=== PATIENT | male | born 1960 | race Caucasian/White ===

== ENCOUNTER → 2016-10-31 | Outpatient (CLI) | payer OTHER ==
[~2016-10-31] VITALS: Ht 182.9 cm; Wt 81.2 kg
[~2016-10-31] MED LIST: ALLO10TA PO; ALPR1TAB3 PO; AMLO5TAB2 PO; ASPI1TAB PO; DIPH2.5T14 PO; LIDOCAINE 2% INJ 100 MG/5 ML SDV (FOR ANES.) As Ordered ONE; METO-207 PO; NS 1,000 ML IV ONE; PROPOFOL 500 MG/50 ML VIAL As Ordered ONE; SERT50TA PO
--- NOTE | 2016-10-31 09:12 | ROOR ---
Patient Name: Jorge Carmen Procedure Date: 10/31/2016 8:47 AM Date of : 1960 Age: 56 Room: [facility] Gender: Male Note Status: Finalized Procedure: Colonoscopy to Cecum Indications: Screening for colorectal malignant neoplasm Providers: Jake Garcia MD Referring MD: JOSEPHINE SIN MD Requesting Provider: Medicines: Monitored Anesthesia Care Complications: No immediate complications. Procedure: Pre-Anesthesia Assessment: - The heart rate, respiratory rate, oxygen saturations, blood pressure, adequacy of pulmonary ventilation, and response to care were monitored throughout the procedure. The Colonoscope was introduced through the anus and advanced to the cecum, identified by appendiceal orifice and ileocecal valve. The colonoscopy was performed without difficulty. The patient tolerated the procedure well. The quality of the bowel preparation was excellent. Findings: The perianal and digital rectal examinations were normal. Non-bleeding internal hemorrhoids were found during retroflexion. The hemorrhoids were small and Grade I (internal hemorrhoids that do not prolapse). No other significant abnormalities were identified in a careful examination of the remainder of the colon. The exam was otherwise without abnormality on direct and retroflexion views. Impression: - Non-bleeding internal hemorrhoids. - The examination was otherwise normal on direct and retroflexion views. - No specimens collected. - The exam was otherwise normal to the cecum. Recommendation: - Patient has a contact number available for emergencies. The signs and symptoms of potential delayed complications were discussed with the patient. Return to normal activities tomorrow. Written discharge instructions were provided to the patient. - High fiber diet. - Discharge patient to home. - Continue present medications. - Repeat colonoscopy in 10 years for screening purposes. - Return to referring physician. - The findings and recommendations were discussed with the patient's family. Jake Garcia MD Jake Garcia MD 10/31/2016 9:11:50 AM This report has been signed electronically. Number of Addenda: 0 Note Initiated On: 10/31/2016 8:47 AM Estimated Blood Loss: Estimated blood loss: none.
[2016-10-31 09:33] VITALS: BP 117/77
== END | disposition home or self-care (01) ==
LOC: M OPP 07:50
PROVIDERS: ATTEND Internal Medicine Gastroenterology
DX: Z12.11 Encounter for screening for malignant neoplasm of colon (principal); K64.0 First degree hemorrhoids; R00.8 Other abnormalities of heart beat; I10 Essential (primary) hypertension; M10.9 Gout, unspecified; R23.3 Spontaneous ecchymoses; R12 Heartburn; M19.90 Unspecified osteoarthritis, unspecified site; F32.9 Major depressive disorder, single episode, unspecified; F41.9 Anxiety disorder, unspecified; Z95.9 Presence of cardiac and vascular implant and graft, unspecified; Z79.82 Long term (current) use of aspirin; Z79.899 Other long term (current) drug therapy; Z87.891 Personal history of nicotine dependence

== ENCOUNTER → 2017-02-07 | Outpatient (CLI) | payer OTHER ==
[~2017-02-07] MED LIST changes: -LIDOCAINE 2% INJ 100 MG/5 ML SDV (FOR ANES.) As Ordered ONE; -METO-207 PO; +METO1TAB7 PO; -NS 1,000 ML IV ONE; -PROPOFOL 500 MG/50 ML VIAL As Ordered ONE
[2017-02-07 08:36] LABS: MEAN CORPUSCULAR HEMOGLOBIN 33.6 pg (27.0-33.0); MEAN CORPUSCULAR HGB CONC 33.9 g/dl (32.0-36.5); RED CELL DISTRIBUTION WIDTH 13.6 % (11.5-14.5)
[2017-02-07 09:03] LABS: ALBUMIN 3.4 GM/DL (3.2-5.2); ALBUMIN/GLOBULIN RATIO 0.85 (1.00-1.93); ALKALINE PHOSPHATASE 68 U/L (45-117); ALT/SGPT 56 U/L (12-78); ANION GAP 7 MEQ/L (8-16); AST/SGOT 34 U/L (15-37); BILIRUBIN,TOTAL 0.4 MG/DL (0.2-1.0); BLOOD UREA NITROGEN 9 MG/DL (7-18); CALCIUM LEVEL 9.3 MG/DL (8.5-10.1); CARBON DIOXIDE LEVEL 28 MEQ/L (21-32); CHLORIDE LEVEL 109 MEQ/L (98-107); CHOLESTEROL LEVEL 228 MG/DL (<200); CREATININE FOR GFR 0.73 MG/DL (0.70-1.30); GLOMERULAR FILTRATION RATE > 60.0 (>56); GLUCOSE, FASTING 111 MG/DL (70-105); POTASSIUM SERUM 4.5 MEQ/L (3.5-5.1); SODIUM LEVEL 144 MEQ/L (136-145); TOTAL PROTEIN 7.4 GM/DL (6.4-8.2); TRIGLYCERIDES LEVEL 102 MG/DL (<150)
== END ==
LOC: M LAB 07:47
PROVIDERS: ATTEND Family Medicine
DX: I10 Essential (primary) hypertension (principal); R53.83 Other fatigue

== ENCOUNTER → 2018-07-21 | Outpatient (REF) | payer OTHER ==
[~2018-07-21] MED LIST changes: -AMLO5TAB2 PO; +AMLO5TAB6 PO
== END ==
LOC: M LAB REF 12:23
PROVIDERS: ATTEND Physician Assistant
DX: A09 Infectious gastroenteritis and colitis, unspecified (principal)

== ENCOUNTER → 2018-07-21 | Outpatient (CLI) | payer OTHER ==
--- NOTE | 2018-07-21 10:39 | REP ---
KUB, ONE VIEW: HISTORY: Infectious gastroenteritis. A small amount of air is present in the intestine. There are no air fluid levels or dilated loops of intestine. There is no pneumoperitoneum. The patient is status post stenting of an abdominal aortic aneurysm. The stent extends into the common iliac arteries. IMPRESSION: Nonspecific bowel gas pattern. Electronically Signed by Dayo Alfonso MD 07/21/2018 10:48 A
[2018-07-21 12:39] LABS: BASO # 0.1 10^3/uL (0.0-0.2); BASO % 0.8 % (0.0-1.0); EOS # 0.3 10^3/uL (0.0-0.50); EOS % 2.2 % (0.0-3.0); HEMATOCRIT 53.4 % (42.0-52.0); HEMOGLOBIN 18.1 g/dl (13.5-17.5); LYMPH # 3.2 10^3/uL (1.5-4.5); LYMPH % 24.8 % (24.0-44.0); MEAN CORPUSCULAR HEMOGLOBIN 31.9 pg (27.0-33.0); MEAN CORPUSCULAR HGB CONC 33.9 g/dl (32.0-36.5); MEAN CORPUSCULAR VOLUME 94.2 fl (80.0-96.0); MONO # 1.8 10^3/uL (0.0-0.8); MONO % 13.8 % (0.0-5.0); NEUTROPHILS # 7.5 10^3/uL (1.8-7.7); NEUTROPHILS % 57.7 % (36.0-66.0); PLATELET COUNT, AUTOMATED 201 10^3/uL (150-450); RED BLOOD COUNT 5.67 10^6/uL (4.30-6.10)
[2018-07-21 13:13] LABS: ALBUMIN 3.4 GM/DL (3.2-5.2); ALT/SGPT 29 U/L (12-78); AMYLASE 54 U/L (25-115); BILIRUBIN,TOTAL 0.7 MG/DL (0.2-1.0); BLOOD UREA NITROGEN 20 MG/DL (7-18); CALCIUM LEVEL 9.8 MG/DL (8.5-10.1); CARBON DIOXIDE LEVEL 25 MEQ/L (21-32); CHLORIDE LEVEL 99 MEQ/L (98-107); CREATININE FOR GFR 1.28 MG/DL (0.70-1.30); FREE T4 0.93 NG/DL (0.76-1.46); GLOMERULAR FILTRATION RATE > 60.0 (>56); GLUCOSE, FASTING 94 MG/DL (70-100); LIPASE 126 U/L (73-393); POTASSIUM SERUM 3.9 MEQ/L (3.5-5.1); SODIUM LEVEL 137 MEQ/L (136-145)
== END ==
LOC: M WUC 09:05
PROVIDERS: ATTEND Physician Assistant
DX: A09 Infectious gastroenteritis and colitis, unspecified (principal)

== ENCOUNTER 2018-10-07 10:48 | Emergency (ER) | payer OTHER, BC ==
[~2018-10-07] VITALS: Ht 182.9 cm; Wt 85.6 kg
[~2018-10-07 10:48] MED LIST changes: -ASPI1TAB PO; +ASPI81TA26 PO; +SERT-141 PO; -SERT50TA PO
[2018-10-07] MEDS ORDERED: NORCO, ANEXSIA 5/325MG TABLET (HYDROcodone/ACETAMINOPHEN) PO ONE (13:45)
[2018-10-07] MEDS ORDERED: NAPR-837 PO (14:24)
[2018-10-07] MEDS ORDERED: ADACEL/BOOSTRIX VACCINE (DIPHTH/PERTUSS/ACELL/TETANUS)0.5ML SYR (90715) IM ONE (14:30)
[2018-10-07 14:33] VITALS: BP 141/72
--- NOTE | 2018-10-07 14:36 | REP ---
CT STUDY LUMBAR SPINE WITHOUT CONTRAST: HISTORY: Trauma. Midline pain and swelling. TECHNIQUE: Helical scanning is acquired. Coronal and sagittal multiplanar re-formation images are generated and reviewed as well. CT FINDINGS: Lumbar vertebral body heights are preserved. Alignment is normal. There is straightening of the normal lumbar lordosis. There is degenerative disc disease in the lower lumbar spine most pronounced at L5-S1 and L4-5 but discogenic spurring is also seen with reactive marrow sclerosis at the L2-3 and L3-4. There is no evidence of fracture or collapse. Pedicles and posterior elements are intact. No evidence of spondylolysis or spondylolisthesis. There is osteoarthritic facet hypertrophy bilaterally at the L5-S1 and L4-5, and to slight extended L3-4. Vascular calcification is noted. Normal caliber aorta. IMPRESSION: Degenerative spondylosis changes. No traumatic abnormality noted. Electronically Signed by Gustavo Yepez MD 10/07/2018 08:32 P
== END 2018-10-07 14:40 | disposition home or self-care (01) ==
LOC: M ED 10:48
DX: S30.0XXA Contusion of lower back and pelvis, initial encounter (principal); S50.312A Abrasion of left elbow, initial encounter; Y04.8XXA Assault by other bodily force, initial encounter; Y92.89 Other specified places as the place of occurrence of the external cause; Y93.9 Activity, unspecified; Y99.0 Civilian activity done for income or pay; M47.816 Spondylosis without myelopathy or radiculopathy, lumbar region; M47.817 Spondylosis without myelopathy or radiculopathy, lumbosacral region; Z87.891 Personal history of nicotine dependence; I10 Essential (primary) hypertension; F41.9 Anxiety disorder, unspecified; F32.9 Major depressive disorder, single episode, unspecified; Z79.82 Long term (current) use of aspirin; Z79.899 Other long term (current) drug therapy

== ENCOUNTER → 2019-02-16 | Outpatient (CLI) | payer OTHER ==
[~2019-02-16] MED LIST changes: +NAPR-837 PO
--- NOTE | 2019-02-16 12:31 | REP ---
Left shoulder three views: There is mild acromioclavicular osteoarthritis. The acromioclavicular joint is unremarkable. Mineralization is normal. There are no calcifications. There is no fracture or dislocation. Impression: Mild acromioclavicular osteoarthritis. Otherwise, negative left shoulder. Electronically Signed by Lenny Weber MD 02/16/2019 12:23 P
== END ==
LOC: M SMT 11:46
PROVIDERS: ATTEND Physician Assistant
DX: M19.012 Primary osteoarthritis, left shoulder (principal)

== ENCOUNTER 2019-04-28 21:11 | Inpatient (IN) | payer BC, OTHER ==
[~2019-04-28] VITALS: Ht 182.9 cm; Wt 80.2 kg
[2019-04-28] MEDS: MORPHINE 2 MG/ML 1ML VIAL (J2270) IV PRN ×2 (21:43→22:02)
[2019-04-28] MEDS ORDERED: HEPARIN DRIP 25,000 UNITS in IV 1 EA IV SCH (21:43)
[2019-04-28] MEDS ORDERED: HEPARIN SOD (PORCINE) 5000 UNITS/ML VIAL IV ONE (21:45)
[2019-04-28 21:48] LABS: HEMATOCRIT 44.6 % (42.0-52.0); HEMOGLOBIN 15.6 g/dl (13.5-17.5); MEAN CORPUSCULAR HEMOGLOBIN 32.2 pg (27.0-33.0); PLATELET COUNT, AUTOMATED 160 10^3/uL (150-450); RED BLOOD COUNT 4.85 10^6/uL (4.30-6.10); WHITE BLOOD COUNT 10.1 10^3/uL (4.0-10.0)
[2019-04-28 21:59] LABS: INR 1.13; PARTIAL THROMBOPLASTIN TIME 27.6 SECONDS (25.0-38.4); PROTHROMBIN TIME 14.2 SECONDS (11.8-14.0)
[2019-04-28 22:12] LABS: BLOOD UREA NITROGEN 9 MG/DL (7-18); C REACTIVE PROTEIN QUANTITATIV 0.58 MG/DL (0.00-0.30); CALCIUM LEVEL 8.7 MG/DL (8.8-10.2); CARBON DIOXIDE LEVEL 18 MEQ/L (21-32); CHLORIDE LEVEL 100 MEQ/L (98-107); CREATININE FOR GFR 1.02 MG/DL (0.70-1.30); GLOMERULAR FILTRATION RATE > 60.0 (>49); GLUCOSE, FASTING 130 MG/DL (70-100); POTASSIUM SERUM 3.5 MEQ/L (3.5-5.1); SODIUM LEVEL 134 MEQ/L (136-145)
[2019-04-28] MEDS: HYDROMORPHONE HCL 0.5 MG/ 0.5 ML SYRINGE (J1170 PER 1) IV PRN ×2 (22:25→23:55)
[2019-04-28] MEDS ORDERED: ONDANSETRON 4MG/2ML VIAL (J2405) As Ordered ONE (23:16)
[2019-04-28] MEDS ORDERED: ZYLO300T6 PO (23:22)
[2019-04-28] MEDS ORDERED: TOPR50TA PO (23:22)
[2019-04-28] MEDS ORDERED: ONDANSETRON 4MG/2ML VIAL (J2405) IV ONE (23:30)
--- NOTE | 2019-04-28 23:54 | CR.PDOC ---
General Date of Consultation: Apr 28, 2019 Consultation REASON FOR CONSULTATION/CHIEF COMPLAINT: Cold left foot HISTORY OF PRESENT ILLNESS: Mr Carmen is a very pleasant 58yo gentleman with h/o left fempop bypass in [place] in 2014 (last seen 08/2018 by his surgeon and surveillance imaging was good per the ), and now presents with a 6 hour history of ischemia LLE after kneeling on his roof this afternoon while fixing shingles. He noticed his leg was numb, cold and painful. It did not improve, and we see him now in the ED for urgent options for revascularization. He has dopplerable flow in the bypass, and the popliteal artery, but no PT/DP flow noted on doppler LLE. His foot is cold, pale, and he has limited ability to move his foot and toes. We are now at >6 hours ischemic time. He needs revascularization urgently, and we will proceed to the OR when room is available callie. His , the patient and I discussed the risks, benefits and alternatives to arteriogram and thrombolysis, possible angioplasty if needed for catheter p lacement, of his LLE bypass if thrombosis is present and his distal tibial outflow LLE. We discussed that he will go to the ICU postop, and need a repeat arteriogram and possible intervention 12-24 hours after. They are agreeable to this plan. Informed consent obtained. Patient denies falls, head injuries, MVC, trauma, or surgeries in the last 3 months. He denies h/o CVA, intracranial aneurysms, nose bleeds, bleeding gums, hematemesis, hemoptysis, hematuria, hematochezia, BRBPR, or any other recent bleeding episodes. Will proceed to OR for TPA thrombolysis for limb salvage LLE. ALLERGIES: Please see below. HOME MEDICATIONS: Please see below. PAST MEDICAL HISTORY: 1. PVD. 2. HTN 3. Paroxysmal afib 4. Gout 5. Anxiety/depression PAST SURGICAL HISTORY: 1. Pyloromyotomy 2. R 4th finger plating 3. L fempop bypass with artificial conduit FAMILY HISTORY: Father: Heart disease- of [place] at 49yo Mother: Heart disease and cancer SOCIAL HISTORY: , quit smoking 2014, 6 beers/day, denies illicit drug use REVIEW OF SYSTEMS: CONSTITUTIONAL: Denies f/c HEENT: Denies vision changes, dysphagia, hearing loss CARDIOVASCULAR: Denies CP, +palpitations RESPIRATORY: Denies cough SOB GENITOURINARY: Denies dysuria MUSCULOSKELETAL: +Ischemia LLE GASTROINTESTINAL: +nausea,vomiting SKIN: Denies rashes NEUROLOGICAL: Denies SOLIMAN or sz PSYCHIATRIC: +anxiety/depression ENDOCRINE: Denies DM HEMATOLOGIC/LYMPHATIC: Denies anemia ALLERGIC/IMMUNOLOGIC: Denies PHYSICAL EXAMINATION: VITAL SIGNS: Please see below. GENERAL APPEARANCE: Diaphoretic, mild distress HEENT: NC, TMI, vision grossly intact RESPIRATORY: CTA CARDIOVASCULAR: IRR ABDOMEN: Soft NT EXTREMITIES: RLE warm well perfused with biphasic distal signal, LLE foot pale and cold, no DP/PT signals, +signal bypass NEUROLOGICAL: A&Ox3, diminished motor and sensory L foot PSYCHIATRIC: pleasant and cooperative LABORATORY DATA: Please see below. ASSESSMENT/PLAN: Very pleasant 58yo gentleman with acute ischemia LLE, now >6 hours ischemic time and limb is threatened. 1. Urgent OR for TPA thrombolysis LLE. 2. ICU postop and plan for repeat arteriogram after 12-24 hours depending on how he does with thrombolysis. 3. Continue heparin gtt for now. We appreciate the opportunity to participate in the care of this patient. Vital Signs/I&O Vital Signs Date Time Temp Pulse Resp B/P (MAP) Pulse Ox O2 Delivery O2 Flow Rate FiO2 04/28/19 22:25 18 98 04/28/19 21:17 04/28/19 21:11 98.4 87 Laboratory Data Labs 24H Laboratory Tests 2 04/28/19 21:40: Nucleated Red Blood Cells % (auto) 0.0, Prothrombin Time 14.2H, Prothromb Time International Ratio 1.13, Activated Partial Thromboplast Time 27.6, Anion Gap 16 , Glomerular Filtration Rate > 60.0, Lactic Acid Level 4.9*H, Calcium Level 8.7L, C-Reactive Protein, Quantitative 0.58H CBC/BMP Laboratory Tests 04/28/19 21:40 Allergies Coded Allergies: No Known Allergies (Unverified , 10/23/16) Home Medications Scheduled Allopurinol (Zyloprim) 300 Mg Tablet, 300 MG PO DAILY, (Reported) Alprazolam (Alprazolam) 1 Mg Tab, 1 MG PO DAILY, (Reported) Amlodipine Besylate (Amlodipine Besylate) 5 Mg Tab, 5 MG PO DAILY, (Reported) Aspirin (Aspirin EC) 81 Mg Tab, 81 MG PO DAILY, #30 (Reported) Metoprolol Succinate (Toprol Xl) 50 Mg Tab.er.24h, 50 MG PO DAILY, (Reported) Naproxen (Naprosyn) 500 Mg Tablet, 500 MG PO BID, #30 take with food Sertraline Hcl (Sertraline HCl) 50 Mg Tab, 50 MG PO DAILY, (Reported) MARIANNE THORNE MD Apr 28, 2019 23:01
[2019-04-29] VITALS (41 sets, daily range): BP systolic 111–172; BP diastolic 60–93; O2SAT 92
[2019-04-29] MEDS ORDERED: ceFAZolin SOD 2 GM in IV 1 EA IV ONE ×2
[2019-04-29] MEDS ORDERED: ALTEPLASE RECOMBINANT IV ONE ×2
[2019-04-29] MEDS ORDERED: BUPIVACAINE/EPIN 0.5% 30 ML VIAL As Ordered ONE (00:17)
[2019-04-29] MEDS ORDERED: BUPIVACAINE HCL 0.5% 30 ML VIAL As Ordered ONE (00:17)
[2019-04-29] MEDS ORDERED: LIDOCAINE 1% SDV INJ 30 ML VIAL As Ordered ONE (00:20)
[2019-04-29] MEDS ORDERED: HEPARIN SOD (PORCINE) 5000 UNITS/ML VIAL As Ordered ONE ×2 (00:23→02:00)
[2019-04-29] MEDS ORDERED: ALTEPLASE RECOMBINANT 25 MG in NS 225 ML IV SCH (00:45)
[2019-04-29] MEDS ORDERED: fentaNYL 100 MCG/2 ML INJECTION (J3010) As Ordered ONE ×3 (00:48→16:35)
[2019-04-29] MEDS ORDERED: dexameTHASONE 4 MG/ML 1ML VIAL (J1100) As Ordered ONE (00:48)
[2019-04-29] MEDS ORDERED: LIDOCAINE 2% INJ 100 MG/5 ML SDV (FOR ANES.) As Ordered ONE (00:48)
[2019-04-29] MEDS ORDERED: MIDAZOLAM INJ 2 MG/2 ML VIAL (J2250) As Ordered ONE ×2 (00:48→16:35)
[2019-04-29] MEDS ORDERED: PROPOFOL 200 MG/20 ML VIAL As Ordered ONE ×3 (00:48→01:50)
[2019-04-29] MEDS ORDERED: ONDANSETRON 4MG/2ML VIAL (J2405) As Ordered ONE (00:48)
[2019-04-29] MEDS ORDERED: ceFAZolin 1GM INJ (J0690 PER 500MG) As Ordered ONE (01:04)
[2019-04-29] MEDS ORDERED: PERCOCET 5MG/325MG TAB PO PRN (02:45)
[2019-04-29] MEDS ORDERED: ONDANSETRON 4MG/2ML VIAL (J2405) IV PRN (02:45)
[2019-04-29] MEDS ORDERED: LR 1,000 ML IV SCH (02:45)
[2019-04-29] MEDS: fentaNYL 100 MCG/2 ML INJECTION (J3010) IV PRN ×4 (03:03→03:32)
[2019-04-29] MEDS: HYDROMORPHONE HCL 0.5 MG/ 0.5 ML SYRINGE (J1170 PER 1) IV PRN ×5 (03:41→18:37)
[2019-04-29] MEDS ORDERED: HYDROMORPHONE HCL 0.5 MG/ 0.5 ML SYRINGE (J1170 PER 1) As Ordered ONE (03:41)
--- NOTE | 2019-04-29 03:58 | ROOPDOC ---
[facility] Report Of Operation Report of Operation DATE OF PROCEDURE: 04/29/19 PREPROCEDURE DIAGNOSES: Acute ischemia LLE POSTPROCEDURE DIAGNOSES: Same PROCEDURE: 1. US guided access R COAL WASHER TENDER 2. Arteriogram LLE with selection of the left common femoral and popliteal arteries 3. Placement of 50cm infusion length TPA thrombolysis catheter from origin of b ypass to popliteal artery SURGEON: Valeria Kasper MD ANESTHESIA: MAC and local INDICATION FOR PROCEDURE: 58yo gentleman with acute ischemia left leg. He has a synthetic bypass left femoral popliteal artery done in [place], and was kneeling to lay julia yesterday, then kneeling and squatting to fix a roof today, and when he got down from the roof, his leg was numb and cold. It did not improve, and eventually he sought help at the ED. Unfortunately by the time I saw the patient he had >6hours ischemia time, but he could move his toes so I am hopeful the foot is viable. Risks, benefits and alternatives to a TPA thrombolysis procedure was discussed at length with the patient and his , and they are agreeable to proceed. They understand he is high risk for limb loss due to the extent and duration of ischemic time. Informed consent obtained. REPORT OF OPERATION: The patient was brought to the OR in stable but critical condition. Monitored anesthesia care and antibiotics were administered without complication. His bilateral groins were prepped and draped in sterile fashion. A time out was performed. Local anesthesia was administered to the right groin and we accessed the right common femoral artery under US guidance. This was a very challenging access due to heavy calcified plaque that was near occlusive in the common femoral artery. Eventually we were successful in accessing and passing a wire through the plaque. A micro sheath was placed and a glidewire was advance through the access to the aorta under fluoroscopic guidance. An omni flush catheter was advance over the wire and used to go up and over the bifurcation to the left common femoral vessel. Arteriogram revealed patent profunda but no flow in the bypass and the origin was not visualized well. I attempted to access the bypass repeatedly, and then eventually I used US to identify the origin of the bypass and guide my wire and catheter into the bypass. I exchanged the glide wire for a stiff amplatz wire, advanced it distally to the popliteal artery through the bypass, and then advanced the infusion catheter over the wire. An arteriogram through the infusion catheter revealed fresh thrombus in the tibial vessels to the foot. 6 mg of TPA was used to flush through the catheter, and then a drip of TPA at 1mg an hour was begun for infusion. We then switched the heparin drip to the sheath at 500 units per hour. We then secured the sheath and infusion catheter with an ioban. The patient was taken to PACU in stable condition. DRAINS: none SPECIMENS: none ESTIMATED BLOOD LOSS: Approximately 5 mL. COMPLICATIONS: none PLAN: Will return for repeat arteriogram after 12-24 hours depending on improvement in perfusion. Bedrest until TPA catheter is removed. Continue [place] while TPA infusing. Clear liquid diet. Analgesia and anxiolytics prn. VALERIA KASPER MD Apr 29, 2019 03:58
[2019-04-29] MEDS ORDERED: PERCOCET 5MG/325MG TAB As Ordered ONE (04:06)
[2019-04-29] MEDS ORDERED: HEPARIN DRIP 25,000 UNITS in IV 1 EA IV SCH ×2 (04:13→19:00)
[2019-04-29] MEDS ORDERED: diazePAM 5 MG TAB PO SCH (06:00)
[2019-04-29] MEDS: ONDANSETRON 4MG/2ML VIAL (J2405) IV SCH ×3 (06:32→19:08)
[2019-04-29 06:36] LABS: PARTIAL THROMBOPLASTIN TIME 45.3 SECONDS (25.0-38.4)
[2019-04-29] MEDS: PERCOCET 5MG/325MG TAB PO PRN (07:34)
--- NOTE | 2019-04-29 08:12 | HPE ---
DATE OF ADMISSION: 04/29/2019 PRIMARY CARE PROVIDER: USRENDRA Serrano CHIEF COMPLAINT: Left foot numbness. HISTORY OF PRESENT ILLNESS: This is a 58-year-old male with a past medical history significant for over 50 pack year history of smoking, left Achilles tendon wound, peripheral artery disease with left femoral popliteal artery bypass in 2014, last seen by his surgeon August 2018, bilateral femoral artery stenting in 2010, who presented to the emergency room with acute onset of left painful, pale foot after working on his roof fixing shingles and noted this around 5:00 p.m. today. The patient has noted numbness, then pain, then difficulty with ambulation prompting him to come to the emergency room. 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 He was evaluated by vascular surgery in the emergency room who felt that the patient had critical limb ischemia, which was acute onset in the left foot and brought him emergently to the operating room for thrombolysis with TPA. The patient denies any history of gastrointestinal bleed in the past, intracranial hemorrhage, hematological bleeding tendencies. The hospitalist was asked to admit for an acute ischemic left foot for medical management of other chronic illnesses. He underwent TPA thrombolysis, currently on IV heparin drip for the next 24 hours, monitoring for improvement or worsening clinical status. The patient and patient's have been informed by vascular surgery, Dr. Kasper, that should the patient not have any improvement with thrombolysis that his left foot may not be salvageable. The patient is able to ambulate but with some difficulty due to 10 out of 10 pain. Catheter is noted postoperatively in right groin, minimal blood loss in the operating room. Remains afebrile with preoperative antibiotics. He is requiring IV Dilaudid for breakthrough pain due to severe 10 out of 10 pain and has been placed on Valium 5 mg every 6 hours due to history of daily alcohol abuse, as well as for pain control. PAST MEDICAL HISTORY: 1. Peripheral arterial disease status post fem-pop and bilateral artery stenting in 2010. 2. Anxiety. 3. Depression. 4. Paroxysmal atrial fibrillation. 5. Hypertension. 6. Gout. ALLERGIES: No known drug allergies. PAST SURGICAL HISTORY: 1. Right hand right ring finger fracture in 1989 with right fourth finger plating. 2. Left fem-pop bypass with artifical conduit. 3. Pyloromyotomy. 4. Elbow surgery. 5. Right leg fracture. HOME MEDICATIONS: - allopurinol 300 mg daily - alprazolam 1 mg daily - Norvasc 5 mg daily - metoprolol XL 50 mg daily - sertraline 50 mg daily FAMILY HISTORY: Mother with coronary artery disease, cancer, unknown type. One brother and two sisters. A son and daughter are all healthy. Father with coronary artery disease, myocardial infarction at age 49. SOCIAL HISTORY: Previously smoked a pack a day since he was young, quit 10 years ago. Lives at home with his . Owns a mobile home. High school education. 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 Denies recreational drug use. Drinks six beers daily. 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 REVIEW OF SYSTEMS: Denies weight changes, fevers, chills, changes in appetite. Denies diplopia, blurred vision, tinnitus, vertigo, hearing loss. Denies shortness of breath, chest pain, pressure, tightness, lightheadedness, or dizziness. Denies cough, shortness of breath. No prior history of chronic obstructive pulmonary disease (COPD) or asthma. Quit smoking more than 10 years ago, previously smoked a pack a day. Denies dysuria, urgency, frequency, fevers, chills, or flank pain. Denies abdominal pain. Complains of nausea without vomiting. No fever or chills. No constipation or diarrhea. History of anxiety and depression. Denies bright red blood per rectum, melena, black tarry stools, hematemesis. Denies CVA, headache, seizures. Complains of left foot numbness, cold, difficulty ambulating due to severe pain, history of peripheral arterial disease with fem-pop bypass, bilateral femoral artery stenting. All other systems are otherwise negative. PHYSICAL EXAMINATION: VITAL SIGNS: Temperature 97, pulse 75, respiratory rate 14, blood pressure 160/75, 98% on 2 liters nasal cannula. GENERAL: The patient is awake, alert, oriented to person, place and time. Able to speak in full sentences. Face is symmetric. Anicteric. No jaundice. No jugular venous distention (JVD). No thyromegaly. No use of respiratory accessory muscles. LUNGS: Clear to auscultation. No wheezing, rales or rhonchi. HEART: S1, S2. Sinus rhythm. ABDOMEN: Soft, nontender, nondistended. Positive bowel sounds. No rebound or guarding. No hepatosplenomegaly. No abdominal bruits noted. EXTREMITIES: Left foot is cool, pale, purplish in color, cold to touch, nonpalpable dorsalis pedis and posterior tibialis, popliteal pulses positive with Doppler. Right anterior thigh has an arterial sheath. Right foot is pink in color and warm to touch. No peripheral edema. LABORATORY DATA: White count 10, hemoglobin 15, hematocrit 44, platelet count 160. Sodium 134, potassium 3.5, chloride 100, bicarbonate 18, BUN 9, creatinine 1.0, glucose of 130, lactic acid of 4.9, calcium 8.7, C-reactive protein 0.58. ASSESSMENT AND PLAN: This is a 58-year-old male with a history of peripheral arterial disease, status post bilateral femoral stenting with left fem-pop bypass and with artificial conduit in 2014, who presents with acute ischemic left lower extremity, brought to the operating room for TPA thrombolysis. The patient is admitted as an inpatient for two midnights for the following issues: 1. Acute ischemic left lower extremity, status post TPA thrombolysis, currently on intravenous heparin, managed by vascular surgeon Dr. Kasper. Activity is bed rest with left lower extremity elevation. He is currently on Percocet, IV Dilaudid for pain control. Defer to Dr. Kasper for further management. 2. Hypertension. Resumed on home dose of metoprolol and Norvasc. 3. Gout. On allopurinol. 4. Anxiety and depression. On home dose of sertraline and Xanax. 5. Alcohol abuse with six beers daily. Currently on Valium 5 mg every 6 hours. 6. Diet is no added salt. CODE STATUS: FULL CODE. MTDD
[2019-04-29] MEDS: METOPROLOL SUCC (TopROL XL) 50MG **XL** TAB PO SCH (08:27)
[2019-04-29] MEDS: amLODIPine 5 MG TAB PO SCH (08:27)
[2019-04-29] MEDS: ceFAZolin SOD 1 GM in D5W MINI-BAG PLUS 50 ML IV SCH ×2 (08:27→18:36)
[2019-04-29] MEDS: SERTRALINE HCL 50 MG TAB PO SCH (08:27)
[2019-04-29] MEDS: ALLOPURINOL 300 MG TAB PO SCH (08:27)
[2019-04-29] MEDS ORDERED: ALPRAZolam 0.5 MG TAB PO SCH (09:00)
[2019-04-29 12:03] LABS: HEMATOCRIT 45.1 % (42.0-52.0)
[2019-04-29 12:16] LABS: FIBRINOGEN 122 MG/DL (221-452)
[2019-04-29] MEDS ORDERED: LORazepam 2 MG TAB PO PRN (12:30)
[2019-04-29 12:46] LABS: PARTIAL THROMBOPLASTIN TIME > 240.0 SECONDS (25.0-38.4)
--- NOTE | 2019-04-29 12:47 | IPNPDOC ---
Text Note Date of Service The patient was seen on 04/29/19. NOTE Interim events and Subjective: -Was visiting with family this morning and reporting that his pain is much better than when he presented -His feet feel cold, is asking for socks -Was placed on benzoQ6 for history of high alcohol use and continued on home daily xanax -Was urgently seen by vascular yesterday and had TPA thrombolysis of LLE -Unfortunately DP pulses have not been dopplerable on both LE per overnight nursing and on vascular exam this morning Objective: -VITAL SIGNS: Please see below. GENERAL APPEARANCE: Comfortable, pleasant, NAD HEENT: NCAT, vision grossly intact, MMM RESPIRATORY: CTAB CARDIOVASCULAR: Irregular rhythm, no murmurs ABDOMEN: Normoactive, soft, non tender EXTREMITIES: feet pale and cold, no DP palpable pulses bilaterally NEUROLOGICAL: A&Ox3, diminished motor and sensory L foot but reporting that it has improved from the prior exam at presentation PSYCHIATRIC: pleasant and cooperative, AOx3 LABORATORY DATA: Please see below. Assessment: 58-year-old male with a history of peripheral arterial disease, status post bilateral femoral stenting with left fem-pop bypass and with artificial conduit in 2014, who presented with acute ischemic left lower extremity s/p TPA thrombolysis with ongoing pain management and pending arteriogram this afternoon. 1. Acute ischemic left lower extremity, status post TPA thrombolysis, currently on intravenous heparin, managed by vascular surgeon Dr. Kasper. -Activity is bed rest with left lower extremity elevation. -Continue Percocet, IV Dilaudid for pain control and deferring to vascular team for management -Pending arteriogram this afternoon 2. Hypertension. -Resumed on home dose of metoprolol and Norvasc. 3. Gout. -On allopurinol. 4. Anxiety and depression. -On home dose of sertraline and Xanax. 5. Alcohol abuse with six beers daily. -Switched from standing valium to CIWA protocol 6. Diet: Clear liquid diet per vascular team VS,Fishbone, I+O VS, Fishbone, I+O Laboratory Tests 04/28/19 21:40 04/29/19 11:45 Vital Signs Date Time Temp Pulse Resp B/P (MAP) Pulse Ox O2 Delivery O2 Flow Rate FiO2 04/29/19 12:01 97.0 70 20 117/77 (90) 90 Room Air 04/29/19 09:31 1.0 I&O- Last 24 Hours up to 6 AM 04/29/19 06:00 Intake Total 890 ml Output Total 230 ml Balance 660 ml ANDRES PEÑA MD Apr 29, 2019 12:46
[2019-04-29 13:14] LABS: HEMATOCRIT 43.4 % (42.0-52.0); HEMOGLOBIN 14.7 g/dl (13.5-17.5)
[2019-04-29 13:21] LABS: PARTIAL THROMBOPLASTIN TIME 34.1 SECONDS (25.0-38.4)
[2019-04-29] MEDS ORDERED: LIDOCAINE 1% MDV 20ML VIAL As Ordered ONE (16:14)
[2019-04-29] MEDS ORDERED: ISOVUE-300 61% 50ML VIAL (Q9967) As Ordered ONE ×2 (16:14→17:45)
[2019-04-29] MEDS: THIAMINE 100 MG TAB PO SCH ×2 (18:35→18:49)
[2019-04-29] MEDS: FOLIC ACID 1 MG TAB PO SCH (18:36)
[2019-04-29] MEDS: MULTIVITAMINS/MINERALS THERAP 1 TAB PO SCH (18:36)
--- NOTE | 2019-04-29 18:40 | ROOPDOC ---
[facility] Report Of Operation Report of Operation DATE OF PROCEDURE: 04/29/19 PREPROCEDURE DIAGNOSES: 1. Acute ischemia left lower extremity status post thrombolysis catheter placement across left femoral-popliteal bypass and popliteal artery. 2. Acute on chronic ischemic changes right lower extremity with right common femoral artery access site for thrombolysis catheter left lower extremity. POSTPROCEDURE DIAGNOSES: Same PROCEDURE: 1. Left lower extremity arteriogram through thrombolysis catheter and removal TPA thrombolysis catheter 2. Right lower extremity arteriogram through existing common femoral artery sheath 3. Mynx closure right common femoral artery 4. Ultrasound-guided access left common femoral artery 5. Angioplasty right common femoral and profunda with 6 x 100 [place] balloon 6. Administration 8 mg TPA to right common femoral artery through sheath 7. Completion arteriograms with runoff to the right foot 8. Mynx closure left common femoral artery SURGEON: Marianne Kasper MD ANESTHESIA: Local anesthesia 10 mL lidocaine. Monitored intravenous conscious sedation with supervised by Dr. Kasper. The patient was independently monitored by registered nurse assigned as Department of radiology using automated blood pressure, EKG, and pulse oximetry. The detailed sedation record is permanently stored in the hospital information system. The following is the brief sedation record: Start time 16:38, stop time 17:56, Versed 1 mg IV, fentanyl 25 g IV, TPA 8 mg IV. CONTRAST: 99 mL Isovue INDICATION FOR PROCEDURE: Mr. Carmen is a 4-year-old gentleman who underwent a left femoral to below-knee popliteal bypass and [place] many years ago and yesterday had an acute thrombosis of his bypass graft while repairing his roof. He unfortunately had extended ischemic time, and by the time I saw him in the ER, we were in a fairly urgent situation to revascularize. We took the patient to the OR for placement of a thrombolysis catheter left lower extremity, which was extremely challenging due to near occlusive calcification in the right common femoral artery at our access site, history of iliac stents, ability to find the origin of the femoropopliteal bypass, etc. eventually, we were successful in placing a thrombolysis catheter from the origin of the bypass through the distal anastomosis at the popliteal artery. TPA thrombolysis was performed overnight and throughout the day today. When I saw the patient this afternoon his recent fibrinogen was less than 150 and we stop the tPA. We inc reased the heparin drip to 1200 units an hour through the sheath at that point. His left lower extremity was warm and well-perfused, but his right foot looked mottled and cold. The patient said it did not feel any different than normal, but I did notice a difference from when I first saw him in the ER. My fear was that the sheath was occluding most of the flow through the very stenotic common femoral artery. We had planned to bring the patient back for a completion arteriogram after thrombolysis, but we will also perform a right lower extremity arteriogram and see if we can improve flow to the right lower extremity as well. Risks benefits and alternatives were explained to the patient he is agreeable to proceed. Informed consent was obtained. INTERPRETATION: 1. The left lower extremity bypass graft, popliteal artery, and tibial outflow are all widely patent. No significant residual thrombus is noted. 2. Right lower extremity arteriogram through the existing right common femoral artery 7 Cymro sheath reveals the sheath is nearly occlusive within the heavily stenotic common femoral artery, but there is runoff through a widely patent profunda and a complete occlusion of the superficial femoral artery. There is some filling defect in the distal common femoral artery that was concerning for possibly thrombus or may be chronic plaque. 3. After removal of the right femoral sheath and placement of a 6 Cymro sheath up and over the bifurcation from the left common femoral artery, we attempted aspiration at the distal common femoral artery and no thrombus was retrieved. Angioplasty with a 6 x 100 [place] balloon did not improve flow. Because of this I was concerned that this was in fact thrombus, likely from the previous sheath nearly occluding the right common femoral vessel. We did have some TPA from our TPA drip and 8 mg total in 80 mL was administered through the sheath to the area of concern for thrombus. After this, the common femoral artery was widely patent with no residual thrombus noted. There was good flow into the profunda which supplies the reconstituted below-knee popliteal artery and tibials through collateral circulation. REPORT OF OPERATION: Patient was brought to the angiographic suite in stable condition and placed supine on the fluoroscopic table. His right groin, sheath, and TPA lysis catheter were prepped and draped in a sterile fashion. A timeout was performed. Sedation was administered without complication. Arteriograms through the existing TPA thrombolysis catheter revealed widely patent flow th roughout the left lower extremity with no significant residual thrombus. Arteriogram through the right femoral sheath revealed chronic disease with some possible acute thrombus in the distal common femoral artery as well. Please see interpretation above. End Mincks closure device was deployed at the sheath in the right common femoral artery with good hemostasis. We then used ultrasound guidance to gain access on the left common femoral artery, past wire through this access, and then placed a micro-sheath using a Seldinger technique. A Glidewire was advanced through the iliac system and the aorta under fluoroscopic guidance and a 6 Cymro sheath was placed and flushed with saline. We went up and over the bifurcation with an Omni flushed catheter and a Glidewire and then a 45 cm destination sheath was placed over the bifurcation with the tip at the right common femoral artery. The sheath was flushed with saline. Arteriograms with runoff were performed. There was clearly chronic disease in the right lower extremity, with a chronic occlusion of the SFA and distal reconstitution of the popliteal through collaterals from the profunda. Would have to foot is minimal since it is all from collaterals from the profunda, but it is intact. However, I suspect the flow is somewhat diminished by what appears to be thrombus versus occlusive plaque in the distal common femoral artery at the origin of the profunda. We navigated the Glidewire through this area into the profunda and angioplasty with a 6 x 100 [place] balloon with no significant improvement in flow. We then administered 8 mg of TPA in 80 mL left over from our TPA drip through the sheath to this area. After that, arteriogram showed a much improved flow into the profunda and clearance of what I suspect was thrombus at the distal common femoral artery. Next a we performed a runoff to the foot and saw that flow was thready but intact. Mynx closure device was deployed in the left common femoral artery with good hemostasis. Pressure was held at both groins for 10 minutes and the patient was taken to recovery in stable condition. His right foot appeared somewhat better perfused but it was still difficult to Doppler signals at the DP and PT. The patient said this is not unusual for him. The left foot is easy to Doppler and is very warm postprocedure. We're hopeful the right foot will continue to improve now that the sheath is out and now that there is no residual thrombus in the common femoral artery obstructing outflow to the profunda. He will return to the ICU. ESTIMATED BLOOD LOSS: Approximately 5 mL. COMPLICATIONS: None. PLAN: The patient will return to the ICU and will be on 4 hours of bedrest postprocedure. Following that, he can slowly resume normal activity as tolerated, initially with assist until stable and safe without assist. Okay for regular diet. If patient is doing well tomorrow he may be able to go home tomorrow, and he will resume his Plavix. MARIANNE KASPER MD Apr 29, 2019 18:40
[2019-04-29] MEDS ORDERED: HEPARIN SOD (PORCINE) 5000 UNITS/ML VIAL IV PRN (18:45)
[2019-04-29] MEDS ORDERED: IPRATROPIUM 0.5MG/ALBUTEROL 2.5MG INH SOL UD 3ML (DUONEB)(J7620) NEB PRN (21:15)
[2019-04-29] MEDS ORDERED: methylPREDNISolone INJ 125 MG/2 ML VIAL (J2930) IV ONE (21:15)
[2019-04-30] VITALS (13 sets, daily range): BP systolic 100–144; BP diastolic 55–84
[2019-04-30] MEDS: ceFAZolin SOD 1 GM in D5W MINI-BAG PLUS 50 ML IV SCH ×2 (01:07→09:00)
[2019-04-30 03:18] LABS: HEMATOCRIT 40.8 % (42.0-52.0); HEMOGLOBIN 13.5 g/dl (13.5-17.5); MEAN CORPUSCULAR HEMOGLOBIN 32.1 pg (27.0-33.0); MEAN CORPUSCULAR HGB CONC 33.1 g/dl (32.0-36.5); MEAN CORPUSCULAR VOLUME 96.9 fl (80.0-96.0); PLATELET COUNT, AUTOMATED 121 10^3/uL (150-450); RED BLOOD COUNT 4.21 10^6/uL (4.30-6.10); WHITE BLOOD COUNT 12.7 10^3/uL (4.0-10.0)
[2019-04-30 04:21] LABS: BLOOD UREA NITROGEN 18 MG/DL (7-18); CALCIUM LEVEL 8.1 MG/DL (8.8-10.2); CARBON DIOXIDE LEVEL 32 MEQ/L (21-32); CHLORIDE LEVEL 100 MEQ/L (98-107); CREATININE FOR GFR 0.94 MG/DL (0.70-1.30); GLOMERULAR FILTRATION RATE > 60.0 (>49); GLUCOSE, FASTING 160 MG/DL (70-100); POTASSIUM SERUM 4.8 MEQ/L (3.5-5.1); SODIUM LEVEL 135 MEQ/L (136-145)
[2019-04-30] MEDS: HYDROMORPHONE HCL 0.5 MG/ 0.5 ML SYRINGE (J1170 PER 1) IV PRN (05:58)
--- NOTE | 2019-04-30 06:55 | ECGEPIP ---
[facility] - ED Test Date: 2019-04-28 Pat Name: LISA JARRETT Department: Room: [place] [address] Gender: Male Legal Director: HERNANDO : 1960 Requested By: KAVITA Mclean Order Number: [id number] Reading MD: Magdalena Kang Measurements Intervals [place] Rate: 63 P: 45 PA: 162 QRS: 46 QRSD: 137 T: 21 QT: 478 QTc: 490 Interpretive Statements SINUS RHYTHM LEFT ATRIAL ENLARGEMENT INTRAVENTRICULAR CONDUCTION DELAY INFERIOR MYOCARDIAL INFARCTION, PROBABLY OLD NO PRIOR Electronically Signed on 04-30-2019 6:54:48 EDT by Magdalena Kang
[2019-04-30] MEDS: SERTRALINE HCL 50 MG TAB PO SCH (09:46)
[2019-04-30] MEDS: METOPROLOL SUCC (TopROL XL) 50MG **XL** TAB PO SCH (09:46)
[2019-04-30] MEDS: THIAMINE 100 MG TAB PO SCH ×2 (09:46→21:05)
[2019-04-30] MEDS: ALLOPURINOL 300 MG TAB PO SCH (09:46)
[2019-04-30] MEDS: MULTIVITAMINS/MINERALS THERAP 1 TAB PO SCH (09:46)
[2019-04-30] MEDS: FOLIC ACID 1 MG TAB PO SCH (09:47)
[2019-04-30] MEDS: ALPRAZolam 0.5 MG TAB PO SCH (09:47)
[2019-04-30] MEDS: amLODIPine 5 MG TAB PO SCH (09:47)
[2019-04-30] MEDS: ASPIRIN 81 MG ENTERIC TAB PO SCH (12:57)
--- NOTE | 2019-04-30 13:07 | IPNPDOC ---
Text Note Date of Service The patient was seen on 04/30/19. NOTE Interim events and Subjective: -Much improved pain, has walked around the room -LLE feels much better now is not cold anymore -Had arteriogram that showed improvement in LLE flow but significant RLE proximal disease and so was continued on heparin gtt. -No ativan necessary per low CIWAs -Per vascular this morning, good left DP pulses with poor right. Objective: VITAL SIGNS: Please see below. GENERAL APPEARANCE: Comfortable, pleasant, NAD HEENT: NCAT, vision grossly intact, MMM RESPIRATORY: CTAB CARDIOVASCULAR: Irregular rhythm, no murmurs ABDOMEN: Normoactive, soft, non tender EXTREMITIES:warm and well perfused left lower extremity while right lower extremity is cool this morning NEUROLOGICAL: A&Ox3, full range of motion in both feet PSYCHIATRIC: pleasant and cooperative, AOx3 LABORATORY DATA: Please see below. Assessment: 58-year-old male with a history of peripheral arterial disease, status post bilateral femoral stenting with left fem-pop bypass and with artificial conduit in 2014, who presented with acute ischemic left lower extremity s/p TPA thrombolysis with ongoing pain management and improvement in LLE examination with spiritism of blood flow, however with course c/b RLE ischemia with high disease burden per vascular surgery and therefore continuing anticoagulation and will switch plavix to ASA for discharge on ASA/eliquis with plan for eventual RLE bypass surgery in ~30days. Doing well, will transfer to floor with plan for discharge home tomorrow. 1. Acute ischemic left lower extremity, status post TPA thrombolysis, currently on intravenous heparin, managed by vascular surgeon Dr. Kasper, with spiritism of flow and improvement of LLE exam. -Activity as tolerated -Continue Percocet -Discontinue IV Dilaudid 2. Acute ischemic right lower extremity with coolness on exam -High disease burden per vascular -Plan on full anticoagulation + ASA and discontinuing plavix -Continuing heparin gtt for now with plan for dc at 2100h tonight with start of first dose of eliquis 5mg BID -Per vascular surgery, plan will be for eliquis/ASA at discharge home tomorrow and will plan for RLE bypass surgery in ~30days 2. Hypertension. -Resumed on home dose of metoprolol and Norvasc. 3. Gout. -On allopurinol. 4. Anxiety and depression. -On home dose of sertraline and Xanax. 5. Alcohol abuse with six beers daily. -Will DC CIWA protocol at this time, with no ativan doses given on his baseline daily 1mg Xanax Diet: Regular DVT prophylaxis: on full dose anticoagulation Dispo: PT eval and treat, with plan for home tomorrow VS,Fishbone, I+O VS, Fishbone, I+O Laboratory Tests 04/29/19 12:50 04/30/19 03:08 Vital Signs Date Time Temp Pulse Resp B/P (MAP) Pulse Ox O2 Delivery O2 Flow Rate FiO2 04/30/19 12:04 98.0 65 18 130/71 (90) 94 Room Air 04/30/19 03:00 1.0 I&O- Last 24 Hours up to 6 AM 04/30/19 06:00 Intake Total 1069 ml Output Total 1600 ml Balance -531 ml ANDRES PEÑA MD Apr 30, 2019 13:07
--- NOTE | 2019-04-30 15:04 | IPNPDOC ---
Text Note Date of Service The patient was seen on 04/30/19. NOTE Vascular surgery. Dr. Kasper The patient is status post TPA thrombolysis left lower extremity, angioplasty right common femoral and profunda as per Dr. Kasper 04/29/19. Perfusion to the left lower extremity has been improved. The left foot is warm to touch with good signals with Doppler. The left foot appears well perfused. The patient reports no pain/discomfort in the left lower extremity. The patient was noted to have coolness in the right lower extremity yesterday with angioplasty of the right common femoral and profunda completed 04/29/19. The patient is noted to have disease of the right lower extremity. This morning the right foot from the distal pretibial/ankle area downward is cool to touch. Diminished capillary refill. Unable to Doppler DP/PT pulses. The patient however states he is not having pain or discomfort in the right foot. He had some d iscomfort in the right thigh area with ambulation in the room this morning with the RN. The patient's current status is reviewed with Dr. Kasper. Dr. Kasper at the bedside this a.m. and also examined the patient and discussed further with the patient. Plan to continue to observe for now. Will plan to add aspirin 81 mg daily, begin this morning. Begin Eliquis 5 mg by mouth twice a day this evening. Once he begins Eliquis will plan to discontinue heparin drip. Continue to closely monitor and advance activity as tolerated. Possibly consider discharge 05/01/19. VS,Fishbone, I+O VS, Fishbone, I+O Laboratory Tests 04/30/19 03:08 Vital Signs Date Time Temp Pulse Resp B/P (MAP) Pulse Ox O2 Delivery O2 Flow Rate FiO2 04/30/19 13:55 98.0 75 18 144/84 (104) 93 Room Air 04/30/19 03:00 1.0 I&O- Last 24 Hours up to 6 AM 04/30/19 06:00 Intake Total 1069 ml Output Total 1600 ml Balance -531 ml Cara Smith Apr 30, 2019 15:04
[2019-04-30] MEDS ORDERED: traZODone 25MG PER 1/2 TABLET PO ONE (17:00)
[2019-04-30] MEDS: PERCOCET 5MG/325MG TAB PO PRN (18:22)
[2019-04-30] MEDS ORDERED: APIXABAN 5 MG TAB (ELIQUIS) PO SCH (21:00)
[2019-05-01] VITALS (9 sets, daily range): BP systolic 106–145; BP diastolic 61–71
[2019-05-01 06:36] LABS: HEMATOCRIT 36.8 % (42.0-52.0); HEMOGLOBIN 12.3 g/dl (13.5-17.5); MEAN CORPUSCULAR HEMOGLOBIN 32.1 pg (27.0-33.0); MEAN CORPUSCULAR HGB CONC 33.4 g/dl (32.0-36.5); MEAN CORPUSCULAR VOLUME 96.1 fl (80.0-96.0); PLATELET COUNT, AUTOMATED 116 10^3/uL (150-450); RED BLOOD COUNT 3.83 10^6/uL (4.30-6.10)
[2019-05-01 07:08] LABS: BLOOD UREA NITROGEN 14 MG/DL (7-18); CALCIUM LEVEL 7.9 MG/DL (8.8-10.2); CARBON DIOXIDE LEVEL 30 MEQ/L (21-32); CHLORIDE LEVEL 102 MEQ/L (98-107); CREATININE FOR GFR 0.91 MG/DL (0.70-1.30); GLOMERULAR FILTRATION RATE > 60.0 (>49); GLUCOSE, FASTING 109 MG/DL (70-100); POTASSIUM SERUM 3.6 MEQ/L (3.5-5.1); SODIUM LEVEL 137 MEQ/L (136-145)
[2019-05-01] MEDS: ASPIRIN 81 MG ENTERIC TAB PO SCH (09:00)
[2019-05-01] MEDS ORDERED: HEPARIN SOD (PORCINE) 5000 UNITS/ML VIAL IV ONE (09:15)
[2019-05-01] MEDS ORDERED: oxyCODONE 5MG TAB PO PRN (09:15)
[2019-05-01] MEDS ORDERED: HEPARIN 25,000 UNITS/250 ML D5W BAG (100 UNITS/ML) As Ordered ONE (09:35)
[2019-05-01] MEDS: PERCOCET 5MG/325MG TAB PO PRN (09:53)
[2019-05-01] MEDS: amLODIPine 5 MG TAB PO SCH (09:54)
[2019-05-01] MEDS: ALPRAZolam 0.5 MG TAB PO SCH (09:54)
[2019-05-01] MEDS: METOPROLOL SUCC (TopROL XL) 50MG **XL** TAB PO SCH (09:55)
[2019-05-01] MEDS: HEPARIN DRIP 25,000 UNITS in IV 1 EA IV SCH (09:59)
[2019-05-01] MEDS ORDERED: ISOVUE-300 61% 50ML VIAL (Q9967) As Ordered ONE (10:26)
[2019-05-01] MEDS ORDERED: LIDOCAINE 1% MDV 20ML VIAL As Ordered ONE (10:26)
[2019-05-01] MEDS ORDERED: fentaNYL 100 MCG/2 ML INJECTION (J3010) As Ordered ONE (10:27)
[2019-05-01] MEDS ORDERED: HEPARIN 1,000 UNITS/ML 10ML VIAL (FOR RADIOLOGY& DIALYSIS ONLY) As Ordered ONE (10:27)
[2019-05-01] MEDS ORDERED: MIDAZOLAM INJ 2 MG/2 ML VIAL (J2250) As Ordered ONE (10:27)
--- NOTE | 2019-05-01 10:49 | IPNPDOC ---
Text Note Date of Service The patient was seen on 05/01/19. NOTE Vascular surgery. Dr. Kasper The patient is status post TPA thrombolysis left lower extremity, angioplasty right common femoral and profunda as per Dr. Kasper 04/29/19. Perfusion to the left lower extremity has been improved. The left foot is warm to touch with good signals with Doppler. The left foot appears well perfused. The patient reports no pain/discomfort in the left lower extremity. The patient is S/P angioplasty of the right common femoral and profunda completed 04/29/19. Arteriogram indicated chronic disease in the right lower extremity, with a chronic occlusion of the SFA and distal reconstitution of the popliteal through collaterals from the profunda. This morning the patient has complained of right lower extremity pain. He reports pain in the foot and the thigh area. Some discomfort he reports a shooting pain, and he is known to have chronic low back pain. The patient has diminished capillary refill in the right foot. We are still unable to Doppler DP/PT pulses in the right foot, unable to Doppler popliteal. Doppler signal is noted at the right femoral. Dr. Kasper is at the patient's bedside this morning. She has reviewed and examined the patient. With the patient's description, it is difficult to determine if this is more vascular or neurogenic. Plan is to proceed with arteriogram of the right lower extremity this a.m. with further revascularization if amenable. Attempt to avoid open procedure if possible. The procedure, risks, and benefits are reviewed with the patient. The patient wishes to proceed. Consent is obtained and placed on the chart. Have reinitiated heparin drip. Discontinue Eliquis. Nothing by mouth. Continue with pain control. Continue to closely monitor. VS,Fishbone, I+O VS, Fishbone, I+O Laboratory Tests 05/01/19 06:12 Vital Signs Date Time Temp Pulse Resp B/P (MAP) Pulse Ox O2 Delivery O2 Flow Rate FiO2 05/01/19 10:15 99.9 92 16 96 Room Air 05/01/19 09:54 154/77 04/30/19 03:00 1.0 I&O- Last 24 Hours up to 6 AM 05/01/19 06:00 Intake Total 1233 ml Output Total 1000 ml Balance 233 ml Cara Smith May 01, 2019 10:49
[2019-05-01] MEDS ORDERED: ALTEPLASE 2 MG/2 ML VIAL (J2997 PER 1MG) As Ordered ONE ×2 (10:58→11:39)
--- NOTE | 2019-05-01 12:30 | IPNPDOC ---
Text Note Date of Service The patient was seen on 05/01/19. NOTE Subjective: -Reports worsening pain in the right foot that sometimes travel all the way to the thighs. Reports that he had severe pain that he could not even get off the toilet when he walked to the bathroom. -Vascular remains unable to doppler DP/PT and popliteal pulses in the right foot, with positive doppler at the right femoral. Objective: VITAL SIGNS: Please see below. GENERAL APPEARANCE: Comfortable, pleasant, NAD HEENT: NCAT, vision grossly intact, MMM RESPIRATORY: CTAB CARDIOVASCULAR: Irregular rhythm, no murmurs ABDOMEN: Normoactive, soft, non tender EXTREMITIES:left lower extremity WWP, right lower extremity remains cool and pale this morning. NEUROLOGICAL: A&Ox3, full range of motion in both feet but significant pain just push to step in the right foot PSYCHIATRIC: pleasant and cooperative, AOx3 LABORATORY DATA: Please see below. Assessment: 58-year-old male with a history of peripheral arterial disease, status post bilateral femoral stenting with left fem-pop bypass and with artificial conduit in 2014, who presented with acute ischemic left lower extremity s/p TPA thrombolysis and improvement in LLE examination with scientologist of blood flow, however with course c/b RLE ischemia with high disease burden per vascular surgery s/p angioplasty and yesterday had planned on anticoagulation with eliquis and ASA with plan for eventual RLE bypass surgery in ~30days, however given worsening RLE pain, vascular decided to proceed with a RLE arteriogram this a.m. with further revascularization if amenable. Plan: 1. Acute ischemic left lower extremity, status post TPA thrombolysis, currently on intravenous heparin, managed by vascular surgeon Dr. Kasper, with scientologist of flow and improvement of LLE exam. -Activity as tolerated -Continue Percocet 2. Acute ischemic right lower extremity with coolness on exam and worsening pain. -High disease burdenr -proceed with arteriogram of the right lower extremity this a.m. with further revascularization if amenable -Restart heparin gtt and hold eliquis 5mg BID 2. Hypertension. -Resumed on home dose of metoprolol and Norvasc. 3. Gout. -On allopurinol. 4. Anxiety and depression. -On home dose of sertraline and Xanax. 5. Alcohol abuse with six beers daily. -DC CIWA protocol at this time, with no ativan doses given on his baseline daily 1mg Xanax Diet: Regular DVT prophylaxis: on full dose anticoagulation Dispo: PT eval and treat, with plan for home tomorrow VS,[place], I+O VS, Jusbone, I+O Laboratory Tests 05/01/19 06:12 Vital Signs Date Time Temp Pulse Resp B/P (MAP) Pulse Ox O2 Delivery O2 Flow Rate FiO2 05/01/19 12:07 65 16 99 Nasal Cannula 2 05/01/19 10:15 99.9 05/01/19 09:54 154/77 I&O- Last 24 Hours up to 6 AM 05/01/19 06:00 Intake Total 1233 ml Output Total 1000 ml Balance 233 ml ANDRES PEÑA MD May 01, 2019 12:30
--- NOTE | 2019-05-01 12:42 | ROOPDOC ---
[facility] Report Of Operation Report of Operation DATE OF PROCEDURE: 05/01/19 PREPROCEDURE DIAGNOSES: Atherosclerosis of the [place] vessels the right lower extremity with acute on chronic ischemia POSTPROCEDURE DIAGNOSES: Same PROCEDURE: 1. Ultrasound-guided access left common femoral artery 2. Right lower extremity arteriogram 3. Administration TPA to right common femoral artery and profunda artery, 16 mg total 4. Angioplasty right common femoral artery and proximal profunda with 5 x 100 and 7 x 100 Loretto balloons 5. Completion arteriograms 6. Mynx closure left common femoral artery SURGEON: Marianne Kasper MD ANESTHESIA: Local anesthesia 8 mL lidocaine. Moderate intravenous conscious sedation was administered by Dr. Kasper. Patient was independently monitored by a registered nurse assigned to the Department of radiology with automated EKG, pulse oximetry, and blood pressure. The detailed sedation record is housed permanently in the hospital information system. The following is the brief sedation record: Start time 10:47, stop time 11:47, Versed 1 mg IV, fentanyl 50 g IV. INDICATION FOR PROCEDURE: Mr. Carmen is a very pleasant 58-year-old patient who came in a few days ago with acute ischemia of the left lower extremity in thrombosis of his left femoropopliteal bypass and popliteal artery and tibial outflow. He had extensive ischemic time, but we were able to reopen everything with TPA thrombolysis and he tolerated reperfusion well in the left lower extreme a bypass is salvaged. The left lower extremity is doing well. However, we accessed the right common femoral artery in order to place a TPA catheter up and over the bifurcation, and it was challenging access due to heavy calcification and near occlusion in the right common femoral artery. We eventually were able to get the sheath and, but I believe the sheath partially obstructed but little outflow he had through the common femoral artery into the right lower extremity. Before we removed the sheath from the right common femoral artery, arteriogram through the sheath confirmed that the sheath was taking up most of the patent lumen in the right common femoral artery. We also noted a chronic total occlusion of the right superficial femoral artery with extensive collaterals from the profunda filling distally into the patent below- knee popliteal artery with thready tibial runoff. We then removed the sheath in place to minx closure device. There was good hemostasis initially, but when we then accessed the left common femoral artery and went up and over the bifurcation to treat the right side near occlusion, we needed to give TPA and angioplasty the vessel. Following this, there was then bleeding from the right groin which required us to hold pressure for 15 minutes. I believe holding pressure after reopening the vessel might have closed it down somewhat again. The following day the patient seemed okay when he was on heparin drip but when we converted him to eliquis last night his legs became more ischemic. This morning, I did not feel the patient was in satisfactory condition to continue on eliquis and go home, so we restarted a heparin drip with the bolus and discussed with him the risks benefits and alternatives to another intervention to see if we could provide endovascular options for better perfusion to the right lower extremity. We still really would like to wait 6-8 weeks to do his femoral endar terectomy and femoropopliteal bypass and allow that tissue in the groin to heal, but if we are unable to open things today, our next plan will be to take him for open surgery. Risks benefits and alternatives were explained to the patient needs agreeable to proceed. Informed consent was obtained. INTERPRETATION: 1. The right common femoral artery has heavy occlusive plaque at the distal aspect just proximal to the takeoff of the profunda. There is also a little bit of thrombus in this area further restricting flow. 2. The profunda is widely patent with collaterals to the lower leg. 3. After administration of 12 mg TPA to the right common femoral artery and profunda, significant flushing with heparinized saline, angioplasty with a 5 x 107 x 100 Loretto balloon, the common femoral artery into the profunda artery was patent with brisk flow. Runoff to the foot was still sluggish below the knee and tibial outflow at the ankle was minimal. An additional 4 mg of TPA was given through the profunda and flushed through the collaterals with heparinized saline. This improved runoff all the way to the distal foot. Still this is not ideal and the patient will need a bypass. No extravasation, dissection, or embolization was noted. REPORT OF OPERATION: Mr. Carmen was brought to the angiographic suite in stable condition and placed supine on the fluoroscopic table. His bilateral groins were prepped and draped in sterile fashion. A timeout was performed. Sedation was administered without complication. Ultrasound was used to guide access to the left common femoral artery proximal to the takeoff of the femoropopliteal bypass with ultrasound. A wire was passed through this access under fluoroscopic guidance the needle was removed and a micro-sheath was placed. The sheath was flushed with saline. A Glidewire was advanced through this into the aorta under fluoroscopic guidance. Due to heavy scar tissue, we first placed an 8 Mexican dilator over the wire using a Seldinger technique and then the 6 Mexican sheath was placed and flushed with saline. We went up and over the bifurcation with a Glidewire and knobby flushed catheter and the catheter was placed into the common femoral artery on the right. We then performed an arteriogram and the findings are noted above. We then took some time to navigate the wire passed the near occlusion in the common femoral artery into the profunda using a glide cath. We then it exchanged sheath her destination 6 Mexican sheath. 12 mg of TPA was administered through the glide cath into the profunda as well as into the common femoral artery. We then flushed with heparinized saline and angioplasty of the common femoral artery into the proximal 3 cm of the profunda with a 5 x 100 Loretto balloon. There was some improvement after this but still sluggish flow especially distally. We then exchange the balloon for a 7 x 100 Loretto balloon and administered another 4 mg of TPA distally through the profunda and flushed through the collaterals with copious amounts of saline so that it might make a difference in the distal tibial system. Following the angioplasty and additional TPA, we had widely patent inflow into the profunda that was brisk. It is still not perfect and the patient still needs a right common femoral endarterectomy, but this may be enough to keep his collaterals flowing freely. He then had distal tibial runoff all the way to the foot and the foot went from white and cool to pink with 1 second capillary refill. This concluded the procedure. We exchange the sheath over the wire for short 6 Mexican sheath in a minx closure device was deployed under fluoroscopic guidance with good hemostasis. Pressure was held for 15 minutes and the patient was then taken to recovery in stable condition. He was then later transferred to his room for additional bed rest postprocedure. ESTIMATED BLOOD LOSS: Approximately 5 mL. COMPLICATIONS: None. PLAN: 4 hours of bedrest with left leg straight after procedure. Okay to resume diet. Our plan is to maintain the patient on a heparin drip for the next 24-48 hours. We will then try again to convert him to [facility] for possible discharge to home with a plan to bring him back in 4-6 weeks for a right lower extremity femoral endarterectomy and femoropopliteal bypass after his bruising in his right groin has healed. If he develops ischemic changes again on the [facility], we will be forced to proceed with bypass on this admission, which is suboptimal due to the tenuous tissue right groin. We will see how he does over the next few days and make a decision in further recommendations to follow as appropriate. For now, continue heparin drip with standard protocol. Hieu has been DC'd. Analgesia and anxiolytics when necessary. Normal saline IV fluid hydration due to 3 procedures with IV contrast in the last week. MARIANNE KASPER MD May 01, 2019 12:42
[2019-05-01] MEDS: SERTRALINE HCL 50 MG TAB PO SCH (14:15)
[2019-05-01] MEDS: ALLOPURINOL 300 MG TAB PO SCH (14:15)
[2019-05-01] MEDS: THIAMINE 100 MG TAB PO SCH ×2 (14:15→20:37)
[2019-05-01] MEDS: FOLIC ACID 1 MG TAB PO SCH (14:15)
[2019-05-01] MEDS: MULTIVITAMINS/MINERALS THERAP 1 TAB PO SCH (14:16)
--- NOTE | 2019-05-01 16:54 | IPNPDOC ---
Date Seen The patient was seen on 05/01/19. Progress Note Pt seen and examined s/p RLE revasc today. It is a bit better, but still not optimal. The foot is pink and warmer, and the pt says it feels much better. 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 We will see how he does. Continue heparin gtt for at least 24-48 hours and if ok, we will try a conversion to eliquis again Saturday or Saturday. Will follow exam closely. Valium prn at night for insomnia, muscle spasms, nerve pain. Analgesia increased and available prn. Encourage oral diet and protein intake to help with healing. Pt agreeable to plan. VS, I&O, 24H, Fishbone Vital Signs/I&O Vital Signs Date Time Temp Pulse Resp B/P (MAP) Pulse Ox O2 Delivery O2 Flow Rate FiO2 05/01/19 15:00 99.4 77 20 106/61 (76) 93 Room Air 05/01/19 12:07 2 I&O- Last 24 Hours up to 6 AM 05/01/19 06:00 Intake Total 1233 ml Output Total 1000 ml Balance 233 ml Laboratory Data 24H LABS Laboratory Tests 2 05/01/19 06:12: Nucleated Red Blood Cells % (auto) 0.0, Activated Partial Thromboplast Time 28.6, Anion Gap 5L, Glomerular Filtration Rate > 60.0, Calcium Level 7.9L 05/01/19 16:00: Activated Partial Thromboplast Time 53.5H CBC/BMP Laboratory Tests 05/01/19 06:12 MARIANNE THORNE MD May 01, 2019 16:54
[2019-05-01] MEDS: HEPARIN SOD (PORCINE) 5000 UNITS/ML VIAL IV PRN (17:53)
[2019-05-01] MEDS: ONDANSETRON 4MG/2ML VIAL (J2405) IV SCH (18:23)
[2019-05-01] MEDS: diazePAM 10 MG TAB PO PRN (18:23)
[2019-05-01] MEDS ORDERED: ACETAMINOPHEN TAB 650MG DOSE (2X325MG) PO PRN (18:30)
[2019-05-01] MEDS ORDERED: cefTRIAXone SOD 2 GM VIAL (J0696) IM SCH (20:00)
--- NOTE | 2019-05-01 20:08 | IPNPDOC ---
Text Note Date of Service The patient was seen on 05/01/19. NOTE Was called about patient bleeding from his angio site on his left groin area. I advised nurses to hold pressure over bleeding site and await for my arrival. On on arrival, nursing staff alerted me that they had also called Dr. Kasper and she had advise them to hold pressure for 20 minutes, recheck for bleeding. And if patient is still bleeding, hold pressure again for another 20 minutes. And if patient continues to bleed, she should be notified via a phone call. I advised staff to follow orders as per Dr. King. I will check series H and H and have placed an or for a 10 pound sand bag for additional homeostasis. VITAL SIGNS: Please see below. GENERAL APPEARANCE: Comfortable, no distress, SKIN: non pale appearing CARDIOVASCULAR: Irregular rhythm, no murmurs EXTREMITIES:left lower extremity cool, pulses intact, cap refill 4-5 secs NEUROLOGICAL: A&Ox3, VS,Fishbone, I+O VS, Fishbone, I+O Laboratory Tests 05/01/19 06:12 Vital Signs Date Time Temp Pulse Resp B/P (MAP) Pulse Ox O2 Delivery O2 Flow Rate FiO2 05/01/19 19:35 100.6 05/01/19 18:00 80 18 123/63 (83) 94 Room Air 05/01/19 12:07 2 I&O- Last 24 Hours up to 6 AM 05/01/19 06:00 Intake Total 1233 ml Output Total 1000 ml Balance 233 ml GME ATTESTATION GME ATTESTATION My faculty preceptor for this patient encounter was physically present during t he encounter and was fully available. All aspects of the patient interview, examination, medical decision making process, and medical care plan development were reviewed and approved by the faculty preceptor. The faculty preceptor is aware and concurs with the plan as stated in the body of this note and will attest to such by his/her cosignature. JACQUES YOO DO May 01, 2019 20:08 EMILY THOMPSON MD May 02, 2019 02:08
[2019-05-01 20:37] LABS: HEMATOCRIT 34.2 % (42.0-52.0); HEMOGLOBIN 11.2 g/dl (13.5-17.5)
[2019-05-01] MEDS: cefTRIAXone SOD 2 GM in D5W MINI-BAG PLUS 50 ML IV SCH (20:37)
[2019-05-02] MEDS: HEPARIN SOD (PORCINE) 5000 UNITS/ML VIAL IV PRN ×3 (00:51→14:26)
[2019-05-02 02:00] VITALS: BP 117/64
[2019-05-02 06:00] VITALS: BP 127/69
[2019-05-02 07:00] LABS: HEMATOCRIT 34.5 % (42.0-52.0); HEMOGLOBIN 11.4 g/dl (13.5-17.5); MEAN CORPUSCULAR HEMOGLOBIN 32.4 pg (27.0-33.0); PLATELET COUNT, AUTOMATED 118 10^3/uL (150-450); RED BLOOD COUNT 3.52 10^6/uL (4.30-6.10)
[2019-05-02 07:24] LABS: BLOOD UREA NITROGEN 11 MG/DL (7-18); CALCIUM LEVEL 8.1 MG/DL (8.8-10.2); CARBON DIOXIDE LEVEL 28 MEQ/L (21-32); CHLORIDE LEVEL 105 MEQ/L (98-107); CREATININE FOR GFR 0.77 MG/DL (0.70-1.30); GLOMERULAR FILTRATION RATE > 60.0 (>49); GLUCOSE, FASTING 113 MG/DL (70-100); POTASSIUM SERUM 3.8 MEQ/L (3.5-5.1); SODIUM LEVEL 138 MEQ/L (136-145)
[2019-05-02] MEDS: HEPARIN DRIP 25,000 UNITS in IV 1 EA IV SCH (07:59)
[2019-05-02] MEDS: ASPIRIN 81 MG ENTERIC TAB PO SCH (09:16)
[2019-05-02] MEDS: ALPRAZolam 0.5 MG TAB PO SCH (09:17)
[2019-05-02] MEDS: FOLIC ACID 1 MG TAB PO SCH (09:17)
[2019-05-02] MEDS: MULTIVITAMINS/MINERALS THERAP 1 TAB PO SCH (09:17)
[2019-05-02] MEDS: ALLOPURINOL 300 MG TAB PO SCH (09:17)
[2019-05-02] MEDS: SERTRALINE HCL 50 MG TAB PO SCH (09:17)
[2019-05-02] MEDS: amLODIPine 5 MG TAB PO SCH (09:19)
[2019-05-02] MEDS: METOPROLOL SUCC (TopROL XL) 50MG **XL** TAB PO SCH (09:19)
--- NOTE | 2019-05-02 09:48 | IPNPDOC ---
Date Seen The patient was seen on 05/02/19. Progress Note Patient seen and examined. Last night, he had some postprocedure oozing from his left common femoral access site. The nurses controlled this with pressure for 20 minutes, and a sandbag was placed. We prefer not to have a sandbag on this groin since the patient has a tenuous bypass status post revascularization on this admission. I discussed this with the nurses and they understand. No unfortunate sequela occurred from the sandbag, so we are still in good shape with the left lower extremity. This morning, the patient had a little bleeding again, which had stopped by the time I arrived due to pressure from the morning nurse. The patient needed a bolus for his heparin drip, which we cannot stop due to tenuous vascular status of his right lower extremity as well, thus while the bolus was b eing given and for 30 minutes after, I held gentle pressure over the common femoral artery. No additional bleeding was noted during that time. The postprocedure dressings were removed and new dry dressings were reapplied. The patient tolerated this well. His left lower extremity has strong biphasic signals over the PT and DP, but is still difficult to auscultate signals on the right lower extremity. He desperately needs a bypass revascularization of this lower extremity, but it is much better than it was preprocedure yesterday after opening up better flow from the common femoral into the profunda, which provides collateral circulation to the below-knee tibials. The foot is warm and pink toda y. The patient has no pain in the leg and says it feels at its baseline. We will continue the heparin drip at least 24 hours longer, and unfortunately he has a risk for issues of rebleeding from the left common femoral access site due to full anticoagulation, thus I will keep him on bed rest for the next 24 hours. If his leg is well-perfused tomorrow afternoon, and he has no new bleeding issues from the left groin, we will try to switch him to eliquis again in preparation for discharge. Eventually, the patient will need a right femoral endarterectomy and femoropopliteal bypass, but we would like his right groin bruising to heal prior to proceeding with surgery, and ideally this would be 4-6 weeks. He understands that it may be more urgent to proceed before that time, we will have to accept the increased risks of fragile tissue with increased risk of poor wound healing. We will see how he does. For today, he should remain on bedrest with limited activity in the bed. He should use his incentive spirometer. Analgesia and anxiolytics when necessary. We appreciate the hospitalist chari griffith with this patient. VS, I&O, 24H, Fishbone Vital Signs/I&O Vital Signs Date Time Temp Pulse Resp B/P (MAP) Pulse Ox O2 Delivery O2 Flow Rate FiO2 05/02/19 09:19 87 140/72 05/02/19 06:00 98.9 19 93 Room Air 05/01/19 12:07 2 I&O- Last 24 Hours up to 6 AM 05/02/19 06:00 Intake Total 756 ml Output Total 850 ml Balance -94 ml Laboratory Data 24H LABS Laboratory Tests 2 05/01/19 16:00: Activated Partial Thromboplast Time 53.5H 05/01/19 21:31: Methicillin-Resist S.aureus DNA PCR NOT DETECTED 05/02/19 00:03: Activated Partial Thromboplast Time 56.1H 05/02/19 06:46: Activated Partial Thromboplast Time 62.9H, Nucleated Red Blood Cells % (auto) 0.0, Anion Gap 5L, Glomerular Filtration Rate > 60.0, Calcium Level 8.1L CBC/BMP Laboratory Tests 05/01/19 20:24 05/02/19 06:46 Microbiology Microbiology 05/01/19 Blood Culture, Received Pending MARIANNE THORNE MD May 02, 2019 09:48
[2019-05-02 10:00] VITALS: BP 131/73
[2019-05-02 14:00] VITALS: BP 113/62
--- NOTE | 2019-05-02 16:36 | IPNPDOC ---
Text Note Date of Service The patient was seen on 05/02/19. NOTE Interim events: -Was restarted on heparin gtt and taken back to the OR for cool RLE with worsening pain now s/p RLE revasc with some improvement noted on vascular's post OR exam without +dopplerable pulse -Overnight had bleeding at L groin cath site that was managed with hemostasis -Had a fever yesterday evening to 102.4, had blood cultures drawn and started on empiric ceftriaxone and afebrile overnight with no new complaints -Pain regimen escalated from PRN percocet to PRN percocet and oxycodone, with good effect Subjective: -Reports that his RLE pain has improved -Otherwise feels well, denied dysuria, diaphoresis, chills, shortness of breath, chest pain, palpitations. -12 point ROS is otherwise at this time positive for RLE pain and negative for all the other elements Objective: VITAL SIGNS: Please see below. GENERAL APPEARANCE: Comfortable, pleasant, NAD HEENT: NCAT, vision grossly intact, MMM RESPIRATORY: CTAB CARDIOVASCULAR: Irregular rhythm, no murmurs ABDOMEN: Normoactive, soft, non tender EXTREMITIES:left lower extremity WWP, right lower extremity warmer this morning. NEUROLOGICAL: A&Ox3, full range of motion in both feet PSYCHIATRIC: pleasant and cooperative, AOx3 LABORATORY DATA: Please see below. Assessment: 58-year-old male with a history of peripheral arterial disease, status post bilateral femoral stenting with left fem-pop bypass and with artificial conduit in 2014, who presented with acute ischemic left lower extremity s/p TPA thrombolysis and improvement in LLE examination with lutheran of blood flow, however with course c/b RLE ischemia with high disease burden per vascular surgery s/p angioplasty and yesterday had planned on anticoagulation with eliquis and ASA with plan for eventual RLE bypass surgery in ~30days, however given worsening RLE pain, vascular decided to proceed with a repeat RLE arteriogram yesterday and performed revascularization with plan for by bypass after groin heels. Plan: 1. Acute ischemic left lower extremity, status post TPA thrombolysis on the day of admission, currently on intravenous heparin, managed by vascular surgeon Dr. Kasper, with lutheran of flow and improvement of LLE exam. -Activity as tolerated -Continue Percocet, oxycodone 2. Acute ischemic right lower extremity with coolness on exam and worsening pain. 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 Catheter sites bleeding L groin bleeding: resolved after hemostasis, dressing this morning was c/d/i R groin hematoma: monitor for now and monitor H/H Pending FOBT to investigate other bleeding 4. Hypertension. -Continue home dose of metoprolol and Norvasc. 5. Gout. -On allopurinol. 6. Anxiety and depression. -On home dose of sertraline and Xanax. 7. Alcohol abuse with six beers daily. -s/p CIWA, stable 8. Insomnia -Was started on PRN QHS valium by vascular on 05/01 Diet: Regular DVT prophylaxis: on full dose anticoagulation with heparin gtt VS,Fishbone, I+O VS, Fishbone, I+O Laboratory Tests 05/01/19 20:24 05/02/19 06:46 Vital Signs Date Time Temp Pulse Resp B/P (MAP) Pulse Ox O2 Delivery O2 Flow Rate FiO2 05/02/19 06:00 98.9 75 19 127/69 (88) 93 Room Air 05/01/19 12:07 2 I&O- Last 24 Hours up to 6 AM 05/02/19 06:00 Intake Total 756 ml Output Total 850 ml Balance -94 ml ANDRES PEÑA MD May 02, 2019 08:25
[2019-05-02] MEDS: diazePAM 10 MG TAB PO PRN (19:17)
[2019-05-02] MEDS: cefTRIAXone SOD 2 GM in D5W MINI-BAG PLUS 50 ML IV SCH (19:38)
[2019-05-02] MEDS ORDERED: cefTRIAXone SOD 2 GM VIAL (J0696) IV SCH (20:00)
[2019-05-02] MEDS: PERCOCET 5MG/325MG TAB PO PRN (21:04)
[2019-05-02 22:00] VITALS: BP 132/76
[2019-05-03] MEDS: HEPARIN DRIP 25,000 UNITS in IV 1 EA IV SCH (01:27)
[2019-05-03 06:00] VITALS: BP 131/65
[2019-05-03 07:21] LABS: HEMATOCRIT 34.1 % (42.0-52.0); HEMOGLOBIN 11.3 g/dl (13.5-17.5); MEAN CORPUSCULAR HEMOGLOBIN 31.7 pg (27.0-33.0); MEAN CORPUSCULAR HGB CONC 33.1 g/dl (32.0-36.5); MEAN CORPUSCULAR VOLUME 95.8 fl (80.0-96.0); PLATELET COUNT, AUTOMATED 147 10^3/uL (150-450); RED BLOOD COUNT 3.56 10^6/uL (4.30-6.10); WHITE BLOOD COUNT 8.2 10^3/uL (4.0-10.0)
[2019-05-03 07:41] LABS: BLOOD UREA NITROGEN 11 MG/DL (7-18); CALCIUM LEVEL 8.4 MG/DL (8.8-10.2); CARBON DIOXIDE LEVEL 28 MEQ/L (21-32); CHLORIDE LEVEL 105 MEQ/L (98-107); CREATININE FOR GFR 0.79 MG/DL (0.70-1.30); GLOMERULAR FILTRATION RATE > 60.0 (>49); GLUCOSE, FASTING 113 MG/DL (70-100); POTASSIUM SERUM 3.4 MEQ/L (3.5-5.1); SODIUM LEVEL 138 MEQ/L (136-145)
[2019-05-03] MEDS: ASPIRIN 81 MG ENTERIC TAB PO SCH (08:23)
[2019-05-03] MEDS: METOPROLOL SUCC (TopROL XL) 50MG **XL** TAB PO SCH (08:25)
[2019-05-03] MEDS: amLODIPine 5 MG TAB PO SCH (08:25)
[2019-05-03] MEDS: PERCOCET 5MG/325MG TAB PO PRN ×2 (08:25→19:15)
[2019-05-03] MEDS: ALPRAZolam 0.5 MG TAB PO SCH (08:25)
[2019-05-03] MEDS: SERTRALINE HCL 50 MG TAB PO SCH (08:25)
[2019-05-03] MEDS: MULTIVITAMINS/MINERALS THERAP 1 TAB PO SCH (08:25)
[2019-05-03] MEDS: ALLOPURINOL 300 MG TAB PO SCH (08:26)
[2019-05-03] MEDS: FOLIC ACID 1 MG TAB PO SCH (08:26)
[2019-05-03] MEDS ORDERED: POTASSIUM CHLORIDE 10 MEQ SR TABLET PO ONE (09:00)
[2019-05-03] MEDS ORDERED: BISACODYL 10 MG SUPP PR PRN (09:45)
[2019-05-03] MEDS ORDERED: KCL 20MEQ in NS 1000ML 1,000 ML IV SCH (09:45)
--- NOTE | 2019-05-03 09:56 | IPNPDOC ---
Date Seen The patient was seen on 05/03/19. Progress Note Pt seen and examined. Feeling better today. No new bleeding issues last 24hrs, but mild hematuria is present. Bruising over right groin/scrotum/thigh is stable- tissue is appropriately tender but soft. Femoral pulse palpable. Right DP/PT signals dopplerable today, monophasic. Foot is pink and warm with 2 sec capillary refill. This is all improved. Left groin access site with small bruising near access site, stable. Femoral pulse and DP/PT pulses palpable. Bypass signal biphasic. Foot is warm and pink with 1 second capillary refill. Looks great. Will try to convert pt again to eliquis. I think the hematuria is related to the large heparin boluses given yesterday in the morning and at noon, in addition to a high infusion rate on the drip, and multiple recent doses of TPA for revascularization. IF no gross blood in urine present, will follow for now. Will add IVF for flushing, encourage PO fluids, and add a little K+ to the fluids as he needed replacement today. To err on the side of caution, I'd still like him mostly on bedrest today. He can get OOB with assist to the BR for a BM, but otherwise stay in bed. Colace and dulcolax given for constipation. Will get him up tomorrow with nurse assist for ambulation in the halls, shower, etc if he has no bleeding or clotting issues overnight. Anticipate d/c home possibly tomorrow afternoon if he continues to improve and no new perfusion or bleeding events. VS, I&O, 24H, Jusbone Vital Signs/I&O Vital Signs Date Time Temp Pulse Resp B/P (MAP) Pulse Ox O2 Delivery O2 Flow Rate FiO2 05/03/19 08:25 20 05/03/19 08:25 73 157/90 05/03/19 06:00 98.4 95 Room Air 05/01/19 12:07 2 I&O- Last 24 Hours up to 6 AM 05/03/19 06:00 Intake Total 506 ml Output Total 0 ml Balance 506 ml Laboratory Data 24H LABS Laboratory Tests 2 05/02/19 13:45: Activated Partial Thromboplast Time 62.9H 05/02/19 20:19: Activated Partial Thromboplast Time 89.1H 05/03/19 01:15: Activated Partial Thromboplast Time 79.2H 05/03/19 07:06: Activated Partial Thromboplast Time 82.3H, Nucleated Red Blood Cells % (auto) 0.0, Anion Gap 5L, Glomerular Filtration Rate > 60.0, Calcium Level 8.4L CBC/BMP Laboratory Tests 05/03/19 07:06 Microbiology Microbiology 05/01/19 Blood Culture - Preliminary, Resulted No growth after 24 hours . All specim... MARIANNE THORNE MD May 03, 2019 09:56
[2019-05-03] MEDS: APIXABAN 5 MG TAB (ELIQUIS) PO SCH ×2 (10:14→19:52)
[2019-05-03] MEDS: DOCUSATE SODIUM 100 MG CAP PO SCH ×2 (10:14→19:52)
[2019-05-03 14:00] VITALS: BP 107/60
--- NOTE | 2019-05-03 17:46 | IPNPDOC ---
Text Note Date of Service The patient was seen on 05/03/19. NOTE Interim events: -Heparin gtt stopped, Eliquis started this AM -Negative BCx thus far, so stopped ceftriaxone -RLE DP pulse was dopplerable this morning per nursing, pain much improved Subjective: -Otherwise feels well, denied dysuria, diaphoresis, chills, shortness of breath, chest pain, palpitations. -12 point ROS is otherwise at this time positive for LE pain that is much improved Objective: VITAL SIGNS: Please see below. GENERAL APPEARANCE: Comfortable, pleasant, NAD HEENT: NCAT, vision grossly intact, MMM RESPIRATORY: CTAB CARDIOVASCULAR: Irregular rhythm, no murmurs ABDOMEN: Normoactive, soft, non tender EXTREMITIES: bilateral lower extremities now WWP NEUROLOGICAL: A&Ox3, full range of motion in both feet PSYCHIATRIC: pleasant and cooperative, AOx3 LABORATORY DATA: Reviewed. Please see below. Assessment: 58-year-old male with a history of peripheral arterial disease, status post bilateral femoral stenting with left fem-pop bypass and with artificial conduit in 2014, who presented with acute ischemic left lower extremity s/p TPA thrombolysis and improvement in LLE examination with hoahaoism of blood flow, however with course c/b RLE ischemia with high disease burden per vascular surgery s/p angioplasty now on eliquis and ASA with plan for eventual RLE bypass surgery in ~30days. Plan: 1. Acute ischemic left lower extremity, status post TPA thrombolysis on the day of admission with hoahaoism of flow and improvement of LLE exam. -Activity as tolerated -Continue Percocet, oxycodone 2. Acute ischemic right lower extremity with coolness on exam and worsening pain. 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 Catheter sites bleeding on AC L groin bleeding: resolved after hemostasis, dressing this morning was c/d/i R groin hematoma: monitor for now and monitor H/H Mild hematuria, monitoring FOBT pending Stable H/H 4. Hypertension. -Continue home dose of metoprolol and Norvasc. 5. Gout. -On allopurinol. 6. Anxiety and depression. -On home dose of sertraline and Xanax. 7. Alcohol abuse with six beers daily. -s/p CIWA, stable 8. Insomnia -Was started on PRN QHS valium by vascular on 05/01 Diet: Regular DVT prophylaxis: on full dose anticoagulation with eliquis VS,Fishbone, I+O VS, Fishbone, I+O Laboratory Tests 05/03/19 07:06 Vital Signs Date Time Temp Pulse Resp B/P (MAP) Pulse Ox O2 Delivery O2 Flow Rate FiO2 05/03/19 09:00 18 05/03/19 08:25 73 157/90 05/03/19 06:00 98.4 95 Room Air 05/01/19 12:07 2 I&O- Last 24 Hours up to 6 AM 05/03/19 06:00 Intake Total 506 ml Output Total 0 ml Balance 506 ml ANDRES PEÑA MD May 03, 2019 17:46
[2019-05-03 20:00] VITALS: BP 153/86
[2019-05-03] MEDS: diazePAM 10 MG TAB PO PRN (21:29)
[2019-05-04 06:00] VITALS: BP 116/74
[2019-05-04 06:06] LABS: HEMATOCRIT 33.3 % (42.0-52.0); HEMOGLOBIN 11.1 g/dl (13.5-17.5); MEAN CORPUSCULAR HEMOGLOBIN 32.6 pg (27.0-33.0); MEAN CORPUSCULAR HGB CONC 33.3 g/dl (32.0-36.5); MEAN CORPUSCULAR VOLUME 97.7 fl (80.0-96.0); PLATELET COUNT, AUTOMATED 169 10^3/uL (150-450); RED BLOOD COUNT 3.41 10^6/uL (4.30-6.10); WHITE BLOOD COUNT 7.4 10^3/uL (4.0-10.0)
[2019-05-04 06:29] LABS: BLOOD UREA NITROGEN 9 MG/DL (7-18); CALCIUM LEVEL 8.5 MG/DL (8.8-10.2); CARBON DIOXIDE LEVEL 27 MEQ/L (21-32); CHLORIDE LEVEL 108 MEQ/L (98-107); CREATININE FOR GFR 0.75 MG/DL (0.70-1.30); GLOMERULAR FILTRATION RATE > 60.0 (>49); GLUCOSE, FASTING 103 MG/DL (70-100); POTASSIUM SERUM 3.9 MEQ/L (3.5-5.1); SODIUM LEVEL 139 MEQ/L (136-145)
--- NOTE | 2019-05-04 07:30 | IPNPDOC ---
Date Seen The patient was seen on 05/04/19. Progress Note Pt seen and examined. Feeling better again today. Small BM yesterday with bowel regimen. OOB to bathroom for BM and says he was a little unsteady but did not have trouble ambulating. No new bleeding issues last 48hrs, and mild hematuria has resolved. Bruising over right groin/scrotum/thigh is stable- tissue is appropriately tender but soft. Femoral pulse palpable. Right DP/PT signals dopplerable, monophasic. Foot is pink and warm with 1 sec capillary refill. Motor and sensory back to baseline. This is all improved. Left groin access site with small bruising near access site, stable. Femoral pulse and DP/PT pulses palpable. Bypass signal is biphasic. Foot is warm and pink with 1 second ca pillary refill. Looks great. Successful conversion to eliquis yesterday. Today we will get him up to ambulate with nurse assist in the halls, take a shower. Vein mapping RLE to see if GSV/LSV suitable for bypass. Blood cultures neg 48hrs, remains AF with normal WBC, likely isolated fever 2/2 atelectasis now improved with IS. Recommend d/c antibiotics. Anticipate d/c home with eliquis possibly this afternoon vs in the morning if he continues to improve, can ambulate safely, and no new perfusion or bleeding events. VS, I&O, 24H, Fishbone Vital Signs/I&O Vital Signs Date Time Temp Pulse Resp B/P (MAP) Pulse Ox O2 Delivery O2 Flow Rate FiO2 05/04/19 06:00 98.4 69 18 116/74 (88) 96 Room Air 05/01/19 12:07 2 I&O- Last 24 Hours up to 6 AM 05/04/19 06:00 Intake Total 2210 ml Output Total 1375 ml Balance 835 ml Laboratory Data 24H LABS Laboratory Tests 2 05/04/19 05:45: Nucleated Red Blood Cells % (auto) 0.0, Anion Gap 4L, Glomerular Filtration Rate > 60.0, Calcium Level 8.5L CBC/BMP Laboratory Tests 05/04/19 05:45 Microbiology Microbiology 05/01/19 Blood Culture - Preliminary, Resulted No Growth after 48 hours. All Specime... MARIANNE THORNE MD May 04, 2019 07:30
--- NOTE | 2019-05-04 08:17 | IPNPDOC ---
Text Note Date of Service The patient was seen on 05/04/19. NOTE Interim events: -switched AC to Eliquis -stopped ceftriaxone -improved RLE exam and improved pain -stable H/H Subjective: -Otherwise feels well, denied dysuria, diaphoresis, chills, shortness of breath, chest pain, palpitations. -12 point ROS is otherwise at this time positive for LE pain that is much improved Objective: VITAL SIGNS: Please see below. GENERAL APPEARANCE: Comfortable, pleasant, NAD HEENT: NCAT, vision grossly intact, MMM RESPIRATORY: CTAB CARDIOVASCULAR: Irregular rhythm, no murmurs ABDOMEN: Normoactive, soft, non tender EXTREMITIES: bilateral lower extremities now WWP NEUROLOGICAL: A&Ox3, full range of motion in both feet PSYCHIATRIC: pleasant and cooperative, AOx3 LABORATORY DATA: Reviewed. Please see below. Assessment: 58-year-old man with a history of peripheral arterial disease, status post bilateral femoral stenting with left fem-pop bypass and with artificial conduit in 2014, who presented with acute ischemic left lower extremity s/p TPA thrombolysis and improvement in LLE examination with episcopal of blood flow, however with course c/b RLE ischemia with high disease burden per vascular surgery s/p angioplasty now on eliquis and ASA with plan for eventual RLE bypass surgery in ~30days, pending ambulation trial and discharge home later today or tomorrow AM. Plan: 1. Acute ischemic left lower extremity, status post TPA thrombolysis on the day of admission with episcopal of flow and improvement of LLE exam. -Activity as tolerated -Continue Percocet, oxycodone 2. Acute ischemic right lower extremity with coolness on exam and worsening pain. 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 Catheter sites bleeding on AC -L groin bleeding: resolved after hemostasis, dressing this morning was c/d/i -R groin hematoma: now stable and seized spreading, monitor, with stable H/H -Stable H/H 4. Hypertension. -Continue home dose of metoprolol and Norvasc. 5. Gout. -On allopurinol. 6. Anxiety and depression. -On home dose of sertraline and Xanax. 7. Alcohol abuse with six beers daily. -s/p CIWA, stable 8. Insomnia -Was started on PRN QHS valium by vascular on 05/01 Diet: Regular DVT prophylaxis: on full dose anticoagulation with eliquis Dispo: Home after ambulation trial VS,Fishbone, I+O VS, Fishbone, I+O Laboratory Tests 05/04/19 05:45 Vital Signs Date Time Temp Pulse Resp B/P (MAP) Pulse Ox O2 Delivery O2 Flow Rate FiO2 05/04/19 06:00 98.4 69 18 116/74 (88) 96 Room Air 05/01/19 12:07 2 I&O- Last 24 Hours up to 6 AM 05/04/19 06:00 Intake Total 2210 ml Output Total 1375 ml Balance 835 ml ANDRES PEÑA MD May 04, 2019 08:17
[2019-05-04] MEDS: ALPRAZolam 0.5 MG TAB PO SCH (08:44)
[2019-05-04] MEDS: APIXABAN 5 MG TAB (ELIQUIS) PO SCH (08:44)
[2019-05-04] MEDS: DOCUSATE SODIUM 100 MG CAP PO SCH (08:44)
[2019-05-04] MEDS: ALLOPURINOL 300 MG TAB PO SCH (08:44)
[2019-05-04] MEDS: ASPIRIN 81 MG ENTERIC TAB PO SCH (08:44)
[2019-05-04] MEDS: amLODIPine 5 MG TAB PO SCH (08:46)
[2019-05-04 09:21] VITALS: BP 130/70
[2019-05-04] MEDS: MULTIVITAMINS/MINERALS THERAP 1 TAB PO SCH (09:21)
[2019-05-04] MEDS: METOPROLOL SUCC (TopROL XL) 50MG **XL** TAB PO SCH (09:21)
[2019-05-04] MEDS: SERTRALINE HCL 50 MG TAB PO SCH (09:21)
[2019-05-04] MEDS: FOLIC ACID 1 MG TAB PO SCH (09:21)
--- NOTE | 2019-05-04 09:33 | REP ---
Right lower extremity venous mapping, preop for right fem-pop bypass: Superficial veins : Greater saphenous vein proximal : 5.7 mm. Greater saphenous vein mid: 2.2 mm. Greater saphenous vein distal: 2.3 mm. Lesser saphenous vein proximal: 1.6 mm. Lesser saphenous vein mid: 1.6 mm Lesser saphenous vein distal 1.7 mm. The lesser saphenous vein originates posteriorly. There is no evidence of superficial vein thrombosis. Deep veins: The deep veins demonstrate normal compression, normal Doppler color flow and normal Doppler waveforms with respiration augmentation at multiple levels from the popliteal vein to the common femoral vein. There is no deep vein thrombus. Electronically Signed by Lenny Weber MD 05/04/2019 09:25 A
[2019-05-04] MEDS ORDERED: PERCOCET 5MG/325MG TAB PO PRN (10:45)
[2019-05-04] MEDS ORDERED: PERCOCET PO (11:01)
[2019-05-04] MEDS ORDERED: DOCU100C16 PO (11:01)
[2019-05-04] MEDS ORDERED: ELIQ5TAB PO (11:01)
[2019-05-04] MEDS ORDERED: ASPI81TAEC PO (11:01)
--- NOTE | 2019-05-04 11:19 | DS.PDOC ---
Discharge Summary General Date of Admission Apr 29, 2019 at 00:07 Date of Discharge 05/04/2019 Discharge Summary PROCEDURES PERFORMED DURING STAY: 1. Arteriogram LLE with selection of the left common femoral and popliteal arteries, with placement of TPA thrombolysis catheter from origin of bypass to popliteal artery 2. Right lower extremity arteriogram through existing common femoral artery sheath, angioplasty of right common femoral and balloon x 2 ADMITTING DIAGNOSES: 1. Critical left lower limb ischemia DISCHARGE DIAGNOSES: 1. Critical left lower limb ischemia 2. Acute critical right lower extremity ischemia 3. PAD 4. Alcohol use disorder 5. Hypertension 6. Depression 7. Gout COMPLICATIONS/CHIEF COMPLAINT: Critical Lower Limb Ischemia. HISTORY OF PRESENT ILLNESS: 58-year-old man with a history of peripheral arterial disease, status post bilateral femoral stenting with left fem-pop bypas s and with an artificial conduit placed in 2014, who presented with acute ischemic left lower extremity reporting sudden severe left lower extremity pain with coolness of foot. HOSPITAL COURSE: 58-year-old man with a history of peripheral arterial disease, status post bilateral femoral stenting with left fem-pop bypass and with artificial conduit in 2014, who presented with acute ischemic left lower extremity s/p TPA thrombolysis and pain management with eventual improvement in LLE examination with cheondoism of blood flow, however with course c/b RLE ischemia with high disease burden per vascular surgery and s/p angioplasty and continued anticoagulation through his hospitalization and decision was made to switch him from plavix to full anticoagulation with eliquis 5mg BID as well as aspirin with a plan for eventual RLE bypass surgery in ~30days. He was initially in the ICU for close monitoring after tPA on a heparin drip, dilaudid and percocet for pain and CIWA protocol for alcohol use disorder and was eventually transferred to the floor after he restored LLE flow, pain improved. His course was c/b acute critical right lower limb ischemia with evidence of known high disease burden and a required follow up arteriogram with intervention and was placed on full dose anticoagulation with heparin gtt and switched to eliquis 10mg BID with goal of 1 week at 10mg BID and then 5mg BID thereafter with plan for eventual bypass surgery in one month. On the floor, he ambulated and was seen by PT and was cleared for home discharge and will therefore go on eliqius 10mg BID/ASA81 QD for 6 days, and then switch to eliquis 5mg BID/ASA 81 QD, as well as 1 tab of percocet Q6H PRN for moderate to severe pain with plan for vascular follow up and PCP follow up. I provided his a letter detailing his admission and him a letter excusing him from work and strenuous activity until 05/11/2019 given clinical improvement. DISCHARGE MEDICATIONS: Please see below. ALLERGIES: Please see below. PHYSICAL EXAMINATION ON DISCHARGE: VITAL SIGNS: Please see below. GENERAL APPEARANCE: Comfortable, pleasant, NAD HEENT: NCAT, PERRLA, EOMI, MMM RESPIRATORY: CTAB CARDIOVASCULAR: Regular rhythm this morning, no murmurs ABDOMEN: Normoactive, soft, non tender EXTREMITIES:warm and well perfused left lower extremity with normal color, while right lower extremity remains cool this morning NEUROLOGICAL: A&Ox3, full range of motion in both feet PSYCHIATRIC: pleasant and cooperative, AOx3 LABORATORY DATA: Please see below. IMAGING: Arteriograms as described in procedures above. PROGNOSIS: Fair ACTIVITY: As tolerated, no climbing roofs and strenuous physical activity DIET: Cardiac diet DISCHARGE PLAN: Home with vascular surgery follow up DISPOSITION: Home DISCHARGE INSTRUCTIONS: 1. Please continue to take eliquis 5mg tabs twice daily and aspirin 81mg daily and follow up with vascular surgery for planning of eventual right lower extremity bypass surgery ITEMS TO FOLLOWUP ON ON OUTPATIENT: 1. PAD DISCHARGE CONDITION: Stable TIME SPENT ON DISCHARGE: 47 minutes. Vital Signs/I&Os Vital Signs Date Time Temp Pulse Resp B/P (MAP) Pulse Ox O2 Delivery O2 Flow Rate FiO2 05/01/19 06:46 72 113/64 04/30/19 22:00 98.1 19 95 Room Air 04/30/19 03:00 1.0 I&O- Last 24 Hours up to 6 AM 05/01/19 06:00 Intake Total 1133 ml Output Total 1000 ml Balance 133 ml Laboratory Data Labs 24H Laboratory Tests 2 05/01/19 06:12: Nucleated Red Blood Cells % (auto) 0.0, Activated Partial Thromboplast Time 28.6, Anion Gap 5L, Glomerular Filtration Rate > 60.0, Calcium Level 7.9L CBC/BMP Laboratory Tests 05/01/19 06:12 Discharge Medications Scheduled Allopurinol (Zyloprim) 300 Mg Tablet, 300 MG PO DAILY, (Reported) Alprazolam (Alprazolam) 1 Mg Tab, 1 MG PO DAILY, (Reported) Amlodipine Besylate (Amlodipine Besylate) 5 Mg Tab, 5 MG PO DAILY, (Reported) Apixaban (Eliquis) 5 Mg Tablet, 10 MG PO BID 10mg twice daily for 6days, then 5mg twice daily. Aspirin (Aspirin EC) 81 Mg Tablet.dr, 81 MG PO DAILY Docusate Sodium (Docusate Sodium) 100 Mg Capsule, 100 MG PO BID Metoprolol Succinate (Toprol Xl) 50 Mg Tab.er.24h, 50 MG PO DAILY, (Reported) Sertraline Hcl (Sertraline HCl) 50 Mg Tab, 50 MG PO DAILY, (Reported) Scheduled PRN Oxycodone/Acetaminophen (Oxycodone-Acetaminophen 5-325) 1 Each Tablet, 1 TAB PO Q6HP PRN for MILD/MODERATE PAIN (PS 1-7) Allergies Coded Allergies: No Known Allergies (Unverified , 10/23/16) ANDRES PEÑA MD May 01, 2019 08:04
[2019-05-04 14:00] VITALS: BP 120/70
== END 2019-05-04 14:28 | disposition home or self-care (01) | DRG 181 ==
LOC: M ED 21:11 → M ED INP 04-29 00:07 → M ICU 04-29 04:18 → M MSPAV 04-30 13:57
PROVIDERS: ADMIT General Practice; ATTEND Internal Medicine
PROC: 047K3ZZ Dilation of Right Femoral Artery, Percutaneous Approach (ICD-10-PCS; 2019-04-29)
PROC: 3E05317 Introduction of Other Thrombolytic into Peripheral Artery, Percutaneous Approach (ICD-10-PCS; 2019-04-29)
PROC: B41G1ZZ Fluoroscopy of Left Lower Extremity Arteries using Low Osmolar Contrast (ICD-10-PCS; 2019-04-29)
PROC: B41F1ZZ Fluoroscopy of Right Lower Extremity Arteries using Low Osmolar Contrast (ICD-10-PCS; 2019-04-29)
PROC: 3E05317 Introduction of Other Thrombolytic into Peripheral Artery, Percutaneous Approach (ICD-10-PCS; 2019-04-29)
PROC: B41GZZZ Fluoroscopy of Left Lower Extremity Arteries (ICD-10-PCS; principal; 2019-04-29 00:36)
PROC: 047K3ZZ Dilation of Right Femoral Artery, Percutaneous Approach (ICD-10-PCS; 2019-05-01)
PROC: 3E05317 Introduction of Other Thrombolytic into Peripheral Artery, Percutaneous Approach (ICD-10-PCS; 2019-05-01)
PROC: B41FZZZ Fluoroscopy of Right Lower Extremity Arteries (ICD-10-PCS; 2019-05-01)
DX: I82.442 Acute embolism and thrombosis of left tibial vein (principal); I70.92 Chronic total occlusion of artery of the extremities; I10 Essential (primary) hypertension; F10.10 Alcohol abuse, uncomplicated; F32.9 Major depressive disorder, single episode, unspecified; M10.9 Gout, unspecified; Z79.899 Other long term (current) drug therapy; I48.0 Paroxysmal atrial fibrillation; F41.9 Anxiety disorder, unspecified; I70.291 Other atherosclerosis of native arteries of extremities, right leg; Z87.891 Personal history of nicotine dependence; J98.11 Atelectasis; G47.00 Insomnia, unspecified

== ENCOUNTER → 2019-06-02 | Outpatient (CLI) | payer BC ==
[~2019-06-02] MED LIST changes: +ASPI81TAEC PO; +DOCU100C16 PO; +ELIQ5TAB PO; +PERCOCET PO; +TOPR50TA PO; +ZYLO300T6 PO
[2019-06-02 09:53] LABS: HEMATOCRIT 47.5 % (42.0-52.0); HEMOGLOBIN 15.7 g/dl (13.5-17.5); MEAN CORPUSCULAR HEMOGLOBIN 32.2 pg (27.0-33.0); MEAN CORPUSCULAR HGB CONC 33.1 g/dl (32.0-36.5); MEAN CORPUSCULAR VOLUME 97.3 fl (80.0-96.0); PLATELET COUNT, AUTOMATED 167 10^3/uL (150-450); RED BLOOD COUNT 4.88 10^6/uL (4.30-6.10); WHITE BLOOD COUNT 8.6 10^3/uL (4.0-10.0)
--- NOTE | 2019-06-02 10:03 | REP ---
Clinical: Hypertension. Preoperative assessment . Comparison: 12/27/2008 . Technique: PA and lateral. Findings: The mediastinum and cardiac silhouette are normal. The lung prceiado are clear and without acute consolidation, effusion, or pneumothorax. The skeletal structures are intact and normal. Impression: 1. No acute cardiopulmonary process. Electronically Signed by Rich Kirby MD 06/02/2019 09:54 A
[2019-06-02 10:04] LABS: INR 1.31
[2019-06-02 10:34] LABS: ALBUMIN 3.5 GM/DL (3.2-5.2); ALT/SGPT 39 U/L (12-78); BILIRUBIN,TOTAL 0.5 MG/DL (0.2-1.0); BLOOD UREA NITROGEN 11 MG/DL (7-18); CALCIUM LEVEL 9.3 MG/DL (8.8-10.2); CARBON DIOXIDE LEVEL 26 MEQ/L (21-32); CHLORIDE LEVEL 108 MEQ/L (98-107); CHOLESTEROL LEVEL 232 MG/DL (<200); CREATININE FOR GFR 0.86 MG/DL (0.70-1.30); GLOMERULAR FILTRATION RATE > 60.0 (>49); GLUCOSE, FASTING 121 MG/DL (70-100); HDL CHOLESTEROL 58 MG/DL (>40); LDL CHOLESTEROL 152 MG/DL (<100); NON-HDL-C 174 MG/DL; POTASSIUM SERUM 4.4 MEQ/L (3.5-5.1); PROSTATIC SPECIFIC AG MONITOR 0.44 NG/ML (< 4.00); SODIUM LEVEL 140 MEQ/L (136-145); TOTAL PROTEIN 7.6 GM/DL (6.4-8.2); TRIGLYCERIDES LEVEL 108 MG/DL (<150)
[2019-06-02 10:36] LABS: HEMOGLOBIN A1c 5.1 %
--- NOTE | 2019-06-03 07:57 | ECGEPIP ---
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
== END ==
LOC: M LAB 09:10
PROVIDERS: ATTEND Family Medicine
DX: Z01.818 Encounter for other preprocedural examination (principal); I10 Essential (primary) hypertension; J44.9 Chronic obstructive pulmonary disease, unspecified

== ENCOUNTER 2019-06-11 06:02 | Inpatient (IN) | payer BC ==
[~2019-06-11] VITALS: Ht 182.9 cm; Wt 82.6 kg
[~2019-06-11 06:02] MED LIST changes: +LR 1,000 ML IV ONE; +ceFAZolin SOD 2 GM in IV 1 EA IV ONE
[2019-06-11 06:35] LABS: HEMATOCRIT 47.6 % (42.0-52.0); HEMOGLOBIN 15.3 g/dl (13.5-17.5); MEAN CORPUSCULAR HEMOGLOBIN 31.5 pg (27.0-33.0); MEAN CORPUSCULAR HGB CONC 32.1 g/dl (32.0-36.5); MEAN CORPUSCULAR VOLUME 97.9 fl (80.0-96.0); PLATELET COUNT, AUTOMATED 180 10^3/uL (150-450); RED BLOOD COUNT 4.86 10^6/uL (4.30-6.10); WHITE BLOOD COUNT 7.1 10^3/uL (4.0-10.0)
[2019-06-11 06:46] LABS: INR 1.07; PROTHROMBIN TIME 13.6 SECONDS (11.8-14.0)
[2019-06-11] MEDS ORDERED: BUPIVACAINE/EPIN 0.25% 30 ML VIAL As Ordered ONE (06:58)
[2019-06-11] MEDS ORDERED: HEPARIN SOD (PORCINE) 5000 UNITS/ML VIAL As Ordered ONE ×2 (06:58→09:47)
[2019-06-11 07:04] LABS: BLOOD UREA NITROGEN 12 MG/DL (7-18); CALCIUM LEVEL 8.9 MG/DL (8.8-10.2); CARBON DIOXIDE LEVEL 27 MEQ/L (21-32); CHLORIDE LEVEL 105 MEQ/L (98-107); CREATININE FOR GFR 0.94 MG/DL (0.70-1.30); GLOMERULAR FILTRATION RATE > 60.0 (>49); GLUCOSE, FASTING 110 MG/DL (70-100); POTASSIUM SERUM 4.2 MEQ/L (3.5-5.1); SODIUM LEVEL 140 MEQ/L (136-145)
[2019-06-11] MEDS ORDERED: MIDAZOLAM INJ 2 MG/2 ML VIAL (J2250) As Ordered ONE (07:12)
[2019-06-11] MEDS ORDERED: fentaNYL 250 MCG/5 ML INJECTION (J3010) As Ordered ONE (07:12)
[2019-06-11] MEDS ORDERED: dexameTHASONE 4 MG/ML 1ML VIAL (J1100) As Ordered ONE (07:12)
[2019-06-11] MEDS ORDERED: ONDANSETRON 4MG/2ML VIAL (J2405) As Ordered ONE (07:12)
[2019-06-11] MEDS ORDERED: PROPOFOL 200 MG/20 ML VIAL As Ordered ONE (07:13)
[2019-06-11] MEDS ORDERED: LIDOCAINE 2% INJ 100 MG/5 ML SDV (FOR ANES.) As Ordered ONE (07:13)
[2019-06-11] MEDS ORDERED: ROCURONIUM BROMIDE 50 MG/5 ML VIAL As Ordered ONE ×2 (07:13→09:35)
[2019-06-11] MEDS ORDERED: THROMBIN SOLN 20,000 UNITS KIT As Ordered ONE (07:13)
[2019-06-11 07:47] LABS: PARTIAL THROMBOPLASTIN TIME 30.3 SECONDS (25.0-38.4)
[2019-06-11] MEDS ORDERED: ACETAMINOPHEN 1000MG 100ML IV BTL (OFIRMEV) (J0131 PER 10MG) As Ordered ONE (08:04)
[2019-06-11] MEDS ORDERED: HYDROmorphone HCL 2 MG/ML 1ML VIAL (J1170) As Ordered ONE (08:18)
[2019-06-11] MEDS ORDERED: ePHEDrine SULFATE 25 MG/5 ML(5MG/ML) SYRINGE As Ordered ONE (10:26)
[2019-06-11] MEDS ORDERED: ceFAZolin 1GM INJ (J0690 PER 500MG) As Ordered ONE (11:13)
[2019-06-11] MEDS ORDERED: KETOROLAC 60 MG/2 ML VIAL (J1885) As Ordered ONE (11:42)
[2019-06-11] MEDS ORDERED: SUGAMMADEX SODIUM 500 MG/5 ML VIAL (BRIDION) As Ordered ONE (11:42)
[2019-06-11] MEDS ORDERED: LABETALOL HCL 100 MG/20 ML VIAL As Ordered ONE (12:15)
[2019-06-11] MEDS ORDERED: diazePAM 5 MG TAB PO PRN (12:45)
[2019-06-11] MEDS ORDERED: PERCOCET 5MG/325MG TAB PO PRN (12:45)
[2019-06-11] MEDS ORDERED: HYDROmorphone 2 MG TAB PO PRN (12:45)
--- NOTE | 2019-06-11 13:11 | ROOPDOC ---
[facility] Report Of Operation Report of Operation DATE OF PROCEDURE: 06/11/19 PREPROCEDURE DIAGNOSES: Atherosclerosis of the tanana vessels with lifestyle limiting claudication right lower extremity. POSTPROCEDURE DIAGNOSES: Same. PROCEDURE: 1. Right femoral endarterectomy and profundoplasty with Accuseal patch angioplasty 2. Right femoral to below-knee popliteal bypass with 6 mm ringed PTFE graft SURGEON: Marianne Kasper MD ANESTHESIA: Gen. anesthesia and local. INDICATION FOR PROCEDURE: Mr. Carmen is a 58-year-old gentleman with severe bilateral lower extremity peripheral vascular disease, status post a left femoropopliteal bypass with PTFE in [place] many years ago, status post recent TPA thrombolysis of occluded left femoropopliteal bypass from a right common femoral artery access, status post angioplasty of the right common femoral artery and profunda post-TPA thrombolysis for the left leg. The patient was new to assess at the time of his left lower extremity threatened limb, and we realized quickly while trying to salvage the left leg that the right leg was also threatened from chronic disease. We now bring the patient back for revascularization of the right lower extremity. Risks benefits and alternatives to a right common femoral endarterectomy and femoral-popliteal below-knee bypass with PTFE graft were explained to the patient and he is agreeable to proceed. Informed consent was obtained. The patient unfortunately did not have suitable vein for a saphenous bypass. I did discuss with him that I would like him to stay on eliquis lifelong as long as he can tolerate the anticoagulation without complications. I think it will extend the life of his bypass grafts. He is agreeable to this plan. REPORT OF OPERATION: The patient was brought to the operating room in stable condition and placed supine on the or table. General anesthesia and antibiotics were administered without complication. His right groin and lower extremity were prepped and draped in a sterile fashion. A timeout was performed. An oblique incision was made over the inguinal ligament and carried down to the subcutaneous tissue with Bovie cautery. There are extensive number of bridging veins that were suture ligated and divided. There was a dense amount of scar tissue around the vessel from previous access sites for percutaneous intervention and closure devices, and it took a bit of time to dissect carefully and safely down to the femoral vessel. Eventually, we were able to navigate through the scar tissue to the proximal common femoral artery and this was dissected proximally above the circumflex vessels. Vesseloops were placed around the circumflex vessels. We then carefully dissected down over the common femoral artery to the superficial femoral artery and a vessel loop was placed. We then carefully dissected around the profunda artery and a vessel loop was placed. Following this, 5000 units of heparin was given and allowed to circulate. And angled DeBakey clamp was placed on the common femoral artery proximal to the circumflex vessels in the Vesseloops were secured. An arteriotomy was made and extended with the pot scissors over the area of heavy plaque. The patient had near occlusive intimal hyperplasia throughout the entire common femoral artery extending into the SFA and profunda. This was carefully endarterectomized while preserving enough intima to salvage the vessel. No calcified or granular plaque was encountered. The vessel loop was removed on the profunda and additional plaque was removed from the origin of the profunda. Good backbleeding was noted from the profunda. Once the endarterectomy was satisfactory, we closed the wesley riotomy with an Accu seal patch and anastomosis and running fashion with 5-0 Prolene suture. Before the final sutures are placed we flushed her inflow and outflow arteries and flushed with heparinized saline, and the final sutures were secured. Flow was restored and good hemostasis was noted. There was one spot on the patch that required a repair suture with 6-0 Prolene, and following this, no significant bleeding was noted. Next a longitudinal incision was made over the medial aspect of the right calf just distal to the knee. This was carried down to the subcutaneous tissues Bovie cautery. The greater saphenous vein was very superficial and carefully preserved. Small branches of anteriorly off the greater saphenous vein were ligated and divided. We then continued R dissection down through the fascia and posterior to the tibia. The popliteal artery was small but patent, and carefully dissected away from the popliteal vein and Vesseloops were placed proximally and distally. Small posterior branch was clipped. Additional heparin was given throughout the case every hour to maintain anticoagulation. A tunneler was used to tunnel a 6 mm ringed PTFE graft from the popliteal access site to the groin along the medial aspect of the thigh in the subcutaneous tissue. The proximal end of the graft was beveled for a long anastomosis over the endarterectomy patch. We resecured the clamp on the common femoral artery and the Vesseloops and made a small incision in our patch and extended this with the pot scissors. We then anastomosis the proximal end of the graft to the patch is a running 5-0 Prolene suture. Before the final sutures are placed we flushed the inflow and outflow with a clamp on the graft and then flushed with heparinized saline. We then restored flow and good hemostasis was noted after the final sutures were placed. Next, we made sure that there was enough laxity in the graft that it would not be under tension and slightly beveled the distal end of the graft for an and decide anastomosis to the popliteal artery. The Vesseloops were secured and an arteriotomy was made longitudinally and the popliteal artery with an 11 blade and a pot scissors. The graft was Nasta most to the artery and and decide fashion with 5-0 Prolene suture. Before the final sutures are placed, we flushed the inflow and outflow of the artery as well as flushed through the graft and then irrigated both with heparinized saline. We then placed her final sutures and first restored flow in the proximal popliteal artery and the graft and then through the distal popliteal artery. Good hemostasis was noted. There was a triphasic signal on the popliteal artery distal to the bypass and a strong pulse in the bypass. The foot was hot with palpable pulses. We therefore irrigated both incisions with copious amounts of normal saline. The popliteal incision was carefully closed in multiple layers. We approximated the deep tissues with interrupted 2-0 Vicryl sutures with care taken not to cramp or disrupt the track of the graft. We then closed the fascia in a running fashion with 2-0 Vicryl suture up to the graft. We then closed the more superficial fascia and a running 2-0 Vicryl suture with care taken to cover the graft and to preserve the saphenous vein. We then closed the more superficial layers with a running 3-0 Vicryl suture and then 3-0 Vicryl deep dermal interrupted sutures. Skin alan were used to close the skin. Next, the groin incision was copiously irrigated with normal saline second time. The deep tissues were approximated with a running 2-0 Vicryl suture. Care was taken not to disrupt the path of the graft. We then closed the first layer fashion over the graft and the artery, and then closed to more layers of fashion with 2- 0 Vicryl suture. The more superficial layer was closed with a 3-0 Vicryl suture running, and then the deep dermal layer was approximated with 3-0 Vicryl suture interrupted. The skin was closed with skin alan. All sensations were cleaned and dried and silver border dressings were placed. The patient was allowed to awaken from anesthesia and was taken to recovery in stable condition. He tolerated the procedure well. SPECIMENS: Right femoral plaque sent for pathology DRAINS: None ESTIMATED BLOOD LOSS: Approximately 250 mL. COMPLICATIONS: None. PLAN: Our plan is for the patient to go to the floor today and slowly start to resume his activities as tolerated. He will need high-protein diet to help with wound healing. He will need assistance with ambulation. He will restart his eliquis. We will follow his perfusion closely. MARIANNE KASPER MD Jun 11, 2019 13:11
[2019-06-11] MEDS ORDERED: METOCLOPRAMIDE INJ 10MG/2ML VIAL (J2765) IV PRN (13:15)
[2019-06-11] MEDS ORDERED: ONDANSETRON 4MG/2ML VIAL (J2405) IV PRN (13:15)
[2019-06-11] MEDS ORDERED: ACETAMINOPHEN TAB 650MG DOSE (2X325MG) PO PRN (13:15)
[2019-06-11] MEDS ORDERED: fentaNYL 100 MCG/2 ML INJECTION (J3010) IV PRN (13:15)
[2019-06-11] MEDS ORDERED: oxyCODONE 5MG TAB PO PRN (13:15)
[2019-06-11] MEDS ORDERED: LR 1,000 ML IV SCH (13:15)
[2019-06-11 14:37] VITALS: BP 128/74
[2019-06-11 15:07] VITALS: BP 114/62
[2019-06-11 16:07] VITALS: BP 113/67
[2019-06-11] MEDS: PERCOCET 5MG/325MG TAB PO PRN (16:52)
--- NOTE | 2019-06-11 16:52 | HPE ---
DATE OF ADMISSION: 06/11/2019 VASCULAR SURGEON: Dr. Kasper PRIMARY CARE PHYSICIAN: Luciana Hart. CHIEF COMPLAINT: Left lower extremity peripheral vascular disease, status post femoral popliteal bypass. HISTORY OF PRESENTING ILLNESS: This is a 58-year-old male with significant history for critical left lower limb ischemia, peripheral arterial disease, left femoral-popliteal in 2014, bilateral femoral artery stenting in 2010, recently admitted 04/29/2019 to 05/04/2019 for critical left lower limb ischemia, status post arteriogram and placement of tPA thrombolysis catheter from the origin bypass to popliteal artery, and angioplasty of the right common femoral and balloon times two. Patient had an artificial conduit placed in 2014, presented at that time with acute onset of severe pain and coolness of the foot, was brought into the operating room emergently by vascular surgery status post angioplasty and anticoagulation in the intensive care unit (ICU) and changed from Plavix to Eliquis on discharge. Plan was for femoral-popliteal (fem-pop) after medical stabilization. During the past few weeks, the patient has had some soreness at the tPA catheter site, but no overt hematoma. He denies any numbness of the foot, cool sensation, denies any sharp pains. Patient underwent a right common femoral endarterectomy and major right patch angioplasty, right femoral to below the knee popliteal artery bypass with [place] graft. Per vascular surgery recommendations, patient is being admitted under hospitalist service with activity as tolerated, Ocampo catheter can be discontinued, and pain control, with physical therapy. Patient is to be started on Eliquis 5 mg twice a day later this evening. He is currently on intravenous (IV) Dilaudid, Percocet and Valium for pain, managed by vascular surgery. PAST MEDICAL HISTORY: Peripheral arterial disease with left fem-pop bilateral artery stenting with artificial conduit in 2014. Anxiety, depression. Paroxysmal atrial fibrillation. Hypertension. Gout. PAST SURGICAL HISTORY: Left fem-pop with artificial conduit. Pyloromyotomy. Elbow surgery. Right leg fracture repair. Right hand - right ring finger fractured 1989 with right 4th finger plating. Angioplasty of right common femoral and balloon times two. Left lower extremity tPA from origin of bypass to popliteal artery. ALLERGIES: No known drug allergies. HOME MEDICATIONS: - allopurinol 300 mg daily - apixaban 5 mg twice a day - aspirin 81 mg daily - Xanax 1 mg daily - Norvasc 5 mg daily - metoprolol 50 mg daily - sertraline 50 mg daily HOSPITAL MEDICATIONS: - cefazolin 2 grams IV times one. - Lactated Ringer's one liter - Tylenol 650 mg every 4 hours as needed - allopurinol 300 mg daily - Xanax 1 mg daily - amlodipine 5 mg daily - apixaban 5 mg twice a day - Valium 5 mg every 6 hours as needed - Dilaudid 1 mg by mouth every 4 hours as needed - metoprolol 50 mg by mouth daily - Percocet two tablets every 4 hours as needed for pain - Zoloft 50 mg daily SOCIAL HISTORY: 50 pack-year history of smoking a pack a day since he was young, quit 10 years ago, lives at home with his . 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 Drinks six beers daily. No recreational drug use. 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 High school education. FAMILY HISTORY: Father with coronary artery disease, myocardial infarction (HI) at the age of 49. Mother with coronary artery disease, cancer of unknown type. One brother and two sisters. REVIEW OF SYSTEMS: Patient denies weight gain, weight changes, loss, fever, chills, changes in appetite. Denies diplopia, blurred vision, tinnitus, vertigo, hearing loss, shortness of breath, chest pain, pressure, tightness, lightheadedness, dizziness. No prior history of chronic obstructive pulmonary disease (COPD) or asthma. Quit smoking 10 years ago. Smoked a pack a day. Has a 50 pack-year smoking history. Denies dysuria, urgency, frequency, fever, chills, flank pain, abdominal pain, nausea, vomiting, constipation or diarrhea. He has a history of anxiety and depression. Denies bright red blood per rectum, melena, black tarry stools, hematemesis. Denies CVA, headaches, seizures. History of peripheral artery disease with fem-pop on the left and recent right fem-pop bypass, bilateral femoral artery stenting. All other systems are otherwise negative. PHYSICAL EXAMINATION: Temperature 96.7, pulse 59, respiratory rate 16, blood pressure 112/57, 95% on two liters nasal cannula. Generally, patient is awake, alert, oriented, answering questions appropriately. No icterus. No jaundice. No pallor. Pupils are round, reactive to light and accommodation. Extraocular muscles are intact. Moist mucous membranes. No cervical lymphadenopathy, thyromegaly or jugular venous distention. Neck is supple, full range of motion. Lungs are clear to auscultation. No wheezing, rales or rhonchi. Heart: S1, S2, sinus rhythm. No murmurs, rubs, or gallops. Abdomen is soft, nontender, nondistended. Positive bowel sounds. No rebound, guarding, hepatosplenomegaly, or abdominal bruits. Right groin has a bandage sheath, slightly tender. No bloody drainage. Extremities: No cyanosis, clubbing or any pitting edema. Patient has diminished pulses but palpable bilateral dorsalis pedis and posterior tibialis. LABORATORY DATA: White count 7.1, hemoglobin 15, hematocrit 47, platelet count 180. Sodium 140, potassium 4.2, chloride 105, bicarbonate 27, BUN 12, creatinine 0.94, glucose 110, INR 1.07, PTT 30, PT 13.6. ASSESSMENT AND PLAN: A 58-year-old male with intermittent claudication, recently admitted 04/29/2019 to 05/04/2019 with critical left lower limb ischemia, status post tPA thrombolysis from the bypass to popliteal artery, as well as angioplasty of right common femoral and balloon times two. Patient underwent right femoral endarterectomy and profundoplasty with Acuseal patch angioplasty right femoral to below the knee popliteal bypass with a polytetrafluoroethylene (PTFE) graft postoperatively being admitted for observation. CURRENT ISSUES ARE FOLLOWS: 1. Peripheral arterial disease with atherosclerosis of the right lower extremity, status post right femoral endarterectomy and profundoplasty, Acuseal patch angioplasty with right femoral to below the knee popliteal bypass with 6 mm ring PTFE graft, managed by vascular surgery, Dr. Kasper. The patient has been resumed back on his home dose of Eliquis at 5 mg twice a day. Activity as tolerated. Physical therapy (PT) will be evaluated in the morning, postoperative day #2, may discontinue patient's Ocampo catheter in the morning. Tobacco cessation counseling has been provided for him. He has since quit tobacco use High protein diet to help with wound healing. 2. History of paroxysmal atrial fibrillation. Currently on Eliquis, currently in sinus rhythm on metoprolol. 3. Hypertension, stable. Holding parameters will be placed on metoprolol to prevent low blood pressure. 4. Gout. Continue on allopurinol. 5. Tobacco abuse.cessation counselling provided. 6. Alcohol abuse. Will monitor for signs of withdrawal. DISPOSITION: Defer to vascular surgery for clearance, physical therapy for evaluation in the morning. MTDD
[2019-06-11 17:07] VITALS: BP 110/63
[2019-06-11 18:07] VITALS: BP 107/59
[2019-06-11] MEDS: allopurinoL 300 MG TAB PO SCH (18:27)
[2019-06-11] MEDS: APIXABAN 5 MG TAB (ELIQUIS) PO SCH (20:14)
[2019-06-11 22:00] VITALS: BP 117/69
[2019-06-12] VITALS (7 sets, daily range): BP systolic 115–152; BP diastolic 64–85
[2019-06-12] MEDS: PERCOCET 5MG/325MG TAB PO PRN ×2 (02:52→15:43)
[2019-06-12] MEDS ORDERED: ALPRAZolam 0.5 MG TAB PO SCH (09:00)
[2019-06-12] MEDS: SERTRALINE HCL 50 MG TAB PO SCH (10:16)
[2019-06-12] MEDS: APIXABAN 5 MG TAB (ELIQUIS) PO SCH ×2 (10:16→20:09)
[2019-06-12] MEDS: allopurinoL 300 MG TAB PO SCH (10:16)
[2019-06-12] MEDS: METOPROLOL SUCC (TopROL XL) 50MG **XL** TAB PO SCH (10:30)
[2019-06-12] MEDS: amLODIPine 5 MG TAB PO SCH (10:30)
--- NOTE | 2019-06-12 11:54 | IPNPDOC ---
Text Note Date of Service The patient was seen on 06/12/19. NOTE Vascular surgery. Dr. Kasper The patient is a 58-year-old gentleman status post successful revascularization of acute ischemia of the left lower extremity with TPA thrombolysis, and need for revascularization of his right lower extremity due to chronic arterial insufficiency with lifestyle limiting claudication. The patient is POD1 right common femoral endarterectomy and right femoral to below-knee popliteal bypass with PTFEconduit as per Dr. Kasper. The patient is awake and resting in bed this morning. Patient states this pain is controlled. Right foot has been warm. The patient is afebrile. The patient's right groin and right thigh wounds are thoroughly cleaned, there is no bleeding. Some mild surrounding ecchymosis noted. Mediplex dressing is re applied to the groin and thigh incisions. The right foot is warm to touch. Good capillary refill. There are strong Doppler signals over the bypass as well as the DP/PT at the right foot. Good Doppler signals over the left DP/PT as well. The foot is warm. Continue with daily wound care. Continue with pain control. PT/OT Tentative Plan to allow shower tomorrow 06/13/19. The patient remains on Eliquis anticoagulation 5 mg by mouth twice a day. Would recommend statin if no other contraindication, if patient can tolerate. Continue to follow closely. VS,Fishbone, I+O VS, Fishbone, I+O Vital Signs Date Time Temp Pulse Resp B/P (MAP) Pulse Ox O2 Delivery O2 Flow Rate FiO2 06/12/19 10:30 95 165/85 06/12/19 10:00 97.8 18 97 Room Air 06/11/19 14:30 2 I&O- Last 24 Hours up to 6 AM 06/12/19 06:00 Intake Total 3630 ml Output Total 1300 ml Balance 2330 ml Cara Smith Jun 12, 2019 11:54
[2019-06-12] MEDS: diazePAM 10 MG TAB PO PRN (16:23)
[2019-06-13] VITALS (7 sets, daily range): BP systolic 108–164; BP diastolic 60–92
[2019-06-13] MEDS: PERCOCET 5MG/325MG TAB PO PRN ×2 (05:43→19:27)
[2019-06-13] MEDS: SERTRALINE HCL 50 MG TAB PO SCH (08:23)
[2019-06-13] MEDS: allopurinoL 300 MG TAB PO SCH (08:24)
[2019-06-13] MEDS: amLODIPine 5 MG TAB PO SCH (08:24)
[2019-06-13] MEDS: APIXABAN 5 MG TAB (ELIQUIS) PO SCH ×2 (08:24→20:18)
[2019-06-13] MEDS: METOPROLOL SUCC (TopROL XL) 50MG **XL** TAB PO SCH (08:24)
[2019-06-13 10:58] LABS: BASO # 0.1 10^3/uL (0.0-0.2); BASO % 0.9 % (0.0-1.0); EOS # 0.3 10^3/uL (0.0-0.5); EOS % 3.4 % (0.0-3.0); HEMATOCRIT 40.4 % (42.0-52.0); HEMOGLOBIN 13.1 g/dl (13.5-17.5); LYMPH # 2.2 10^3/uL (1.5-5.0); LYMPH % 26.5 % (24.0-44.0); MEAN CORPUSCULAR HEMOGLOBIN 32.2 pg (27.0-33.0); MEAN CORPUSCULAR HGB CONC 32.4 g/dl (32.0-36.5); MEAN CORPUSCULAR VOLUME 99.3 fl (80.0-96.0); MONO % 12.3 % (0.0-5.0); NEUTROPHILS # 4.7 10^3/uL (1.5-8.5); NEUTROPHILS % 56.5 % (36.0-66.0); PLATELET COUNT, AUTOMATED 155 10^3/uL (150-450); RED BLOOD COUNT 4.07 10^6/uL (4.30-6.10); WHITE BLOOD COUNT 8.2 10^3/uL (4.0-10.0)
[2019-06-13 11:20] LABS: BLOOD UREA NITROGEN 9 MG/DL (7-18); C REACTIVE PROTEIN QUANTITATIV 4.49 MG/DL (0.00-0.30); CARBON DIOXIDE LEVEL 28 MEQ/L (21-32); CHLORIDE LEVEL 106 MEQ/L (98-107); CREATININE FOR GFR 0.85 MG/DL (0.70-1.30); GLOMERULAR FILTRATION RATE > 60.0 (>49); GLUCOSE, FASTING 128 MG/DL (70-100); POTASSIUM SERUM 3.7 MEQ/L (3.5-5.1); SODIUM LEVEL 139 MEQ/L (136-145)
[2019-06-13 11:23] LABS: ERYTHROCYTE SEDIMENTATION RATE 7 mm/hr (0-20)
--- NOTE | 2019-06-13 12:26 | IPN ---
DATE: 06/13/2019 Patient has no new complaints. Ambulating well. He is to shower today and no new ecchymotic areas. He complains of a blister right above the right anterior zamora, about a quarter of a centimeter. No fever or chills overnight. Temperature 97.9, pulse 60, respiratory 17, blood pressure 108/69, 96% on room air. GENERAL: Awake, alert, oriented to person, place and time. Answering questions appropriately. LUNGS: Clear to auscultation. No wheezing, rales or rhonchi. HEART: S1, S2, sinus rhythm. ABDOMEN: Soft, nontender, nondistended. EXTREMITIES: Right medial thigh with ecchymotic area without any hematoma. Incision appears clean and dry with dressing. There is a bullous lesion noted in the right internal right medial thigh above the knee. Warm to touch, pink in color. Dorsalis pedis, posterior tibialis noted by Doppler. LABORATORY DATA: Pending. ASSESSMENT AND PLAN: 58-year-old male with history of significant peripheral vascular disease with left fem-pop stenting with artificial conduit in 2014, paroxysmal atrial fibrillation (A-Fib), anxiety, depression, hypertension, gout, pyloromyotomy admitted 04/29/2019, discharged 05/04/2019 with critical left limb ischemia, status post tPA thrombolysis from bypass to popliteal artery and angioplasty right common femoral and balloon times two. Patient was admitted this time status post right femoral endarterectomy and profundoplasty with Acuseal patch angioplasty right femoral to below the knee popliteal bypass with PT/FE graft. IMPRESSION: 1. Peripheral arterial disease with atherosclerosis of right lower extremity, status post right femoral endarterectomy and profundoplasty, Acuseal patch angioplasty with right femoral to below the knee popliteal bypass managed by vascular surgery. Patient may shower today. May resume his home dose of Eliquis, possible discharge in the morning. 2. Paroxysmal A-Fib. Currently on Eliquis. Sinus rhythm on metoprolol. 3. Hypertension. On metoprolol. 4. Gout. On allopurinol. Discharge plans in the morning. [facility]
[2019-06-13] MEDS ORDERED: MOM 30ML SUSPENSION UDC PO ONE (15:00)
--- NOTE | 2019-06-13 16:07 | IPNPDOC ---
Date Seen The patient was seen on 06/13/19. Progress Note Patient seen and examined. He says he is doing well. He says his room is really hot, and he does them to turn to temperature up because it was cold earlier, now he is sweating. Per the nurse, the patient had a temperature of 100.6, rechecked it was 101. We will see how he does when they cool the room back down, and I have ordered incentive spirometry and he should try to use it at least 10 times per hour while awake. I did tell his nurse that it is okay to send blood cultures 2, UA and urine culture, and get a chest x-ray if his temperature rises above 101.5, although at this point I think it is likely due to warm room and atelectasis. Otherwise, the patient says he is doing well. He is getting up out of bed, taking care of his ADLs, using the bathroom without difficulty, and his pain is well controlled. His right lower extremity incisions are clean dry and intact. There is little drainage on the dressing and they were removed today. He has 2 small blisters on the medial thigh where tape was removed from his dressing yesterday, but no other issues. He has some mild superficial bruising proximal to the distal incision, and minimal bruising around the groin incision. He has a little bit of swelling in the right lower extremity, not unexpected postop. No induration or significant drainage. No bleeding noted. Both incisions were clean thoroughly and redressed. It is okay for the patient to take a shower, and following the shower to cover the incisions with dry gauze and paper tape. Our plan is to continue the eliquis, continue out of bed as tolerated and activity as tolerated, and possibly discharge home tomorrow if he is afebrile and doing well. Will follow closely. Appreciate hospitalist assistance with this patient. VS, I&O, 24H, Fishbone Vital Signs/I&O Vital Signs Date Time Temp Pulse Resp B/P (MAP) Pulse Ox O2 Delivery O2 Flow Rate FiO2 06/13/19 14:25 158/86 (110) 06/13/19 14:00 100.6 71 18 94 Room Air 06/11/19 14:30 2 I&O- Last 24 Hours up to 6 AM 06/13/19 06:00 Intake Total 2400 ml Output Total 3200 ml Balance -800 ml Laboratory Data 24H LABS Laboratory Tests 2 06/13/19 10:41: Immature Granulocyte % (Auto) 0.4, Neutrophils (%) (Auto) 56.5, Lymphocytes (%) (Auto) 26.5, Monocytes (%) (Auto) 12.3H, Eosinophils (%) (Auto) 3.4H, Basophils (%) (Auto) 0.9, Neutrophils # (Auto) 4.7, Lymphocytes # (Auto) 2.2, Monocytes # (Auto) 1.0H, Eosinophils # (Auto) 0.3, Basophils # (Auto) 0.1, Nucleated Red Blood Cells % (auto) 0.0, Erythrocyte Sedimentation Rate 7, Anion Gap 5L, Glomerular Filtration Rate > 60.0, Calcium Level 8.0L, C-Reactive Protein, Quantitative 4.49H CBC/BMP Laboratory Tests 06/13/19 10:41 MARIANNE THORNE MD Jun 13, 2019 16:07
[2019-06-13] MEDS ORDERED: MOM 30ML SUSPENSION UDC PO PRN (20:00)
[2019-06-13] MEDS: diazePAM 10 MG TAB PO PRN (20:18)
[2019-06-13] MEDS: SENOKOT S TAB PO SCH (20:18)
[2019-06-13] MEDS: MIRALAX *UNIT DOSE* 17GM PACKET PO SCH (20:22)
[2019-06-13] MEDS ORDERED: SIMVASTATIN 40 MG TAB PO SCH (21:00)
[2019-06-14 02:00] VITALS: BP 138/68
[2019-06-14 06:00] VITALS: BP 122/68
[2019-06-14 06:16] LABS: HEMATOCRIT 40.5 % (42.0-52.0); HEMOGLOBIN 13.2 g/dl (13.5-17.5); MEAN CORPUSCULAR HEMOGLOBIN 31.8 pg (27.0-33.0); MEAN CORPUSCULAR HGB CONC 32.6 g/dl (32.0-36.5); MEAN CORPUSCULAR VOLUME 97.6 fl (80.0-96.0); PLATELET COUNT, AUTOMATED 154 10^3/uL (150-450); RED BLOOD COUNT 4.15 10^6/uL (4.30-6.10); WHITE BLOOD COUNT 9.1 10^3/uL (4.0-10.0)
[2019-06-14 06:39] LABS: BLOOD UREA NITROGEN 10 MG/DL (7-18); CALCIUM LEVEL 8.8 MG/DL (8.8-10.2); CARBON DIOXIDE LEVEL 28 MEQ/L (21-32); CHLORIDE LEVEL 105 MEQ/L (98-107); CREATININE FOR GFR 0.83 MG/DL (0.70-1.30); GLOMERULAR FILTRATION RATE > 60.0 (>49); GLUCOSE, FASTING 105 MG/DL (70-100); MAGNESIUM LEVEL 2.2 MG/DL (1.8-2.4); POTASSIUM SERUM 3.9 MEQ/L (3.5-5.1); SODIUM LEVEL 139 MEQ/L (136-145)
[2019-06-14 07:52] LABS: C REACTIVE PROTEIN QUANTITATIV 6.46 MG/DL (0.00-0.30)
[2019-06-14] MEDS: MIRALAX *UNIT DOSE* 17GM PACKET PO SCH (08:05)
[2019-06-14] MEDS: SENOKOT S TAB PO SCH (08:06)
[2019-06-14 08:07] VITALS: BP 157/87
[2019-06-14] MEDS: METOPROLOL SUCC (TopROL XL) 50MG **XL** TAB PO SCH (08:07)
[2019-06-14] MEDS: allopurinoL 300 MG TAB PO SCH (08:07)
[2019-06-14] MEDS: SERTRALINE HCL 50 MG TAB PO SCH (08:07)
[2019-06-14] MEDS: amLODIPine 5 MG TAB PO SCH (08:07)
[2019-06-14] MEDS: APIXABAN 5 MG TAB (ELIQUIS) PO SCH (08:07)
[2019-06-14 08:11] LABS: BASO # 0.1 10^3/uL (0.0-0.2); EOS # 0.6 10^3/uL (0.0-0.5); EOS % 6.8 % (0.0-3.0); LYMPH # 1.9 10^3/uL (1.5-5.0); LYMPH % 20.6 % (24.0-44.0); MONO # 1.1 10^3/uL (0.0-0.8); MONO % 12.2 % (0.0-5.0); NEUTROPHILS # 5.5 10^3/uL (1.5-8.5); NEUTROPHILS % 58.9 % (36.0-66.0)
--- NOTE | 2019-06-14 08:32 | REP ---
Portable chest x-ray: Single view. History: Fever. Comparison study: June 02, 2019. Findings: The lungs are symmetrically aerated. No infiltrate is seen. The heart is not enlarged. There is vascular calcification in the right axillary and upper brachial artery distribution. Pulmonary vasculature is not increased. No bony abnormality is seen. The pleural angles are sharp. Impression: No infiltrate seen. Electronically Signed by Gustavo Yepez MD 06/14/2019 08:24 A
[2019-06-14 08:54] LABS: ERYTHROCYTE SEDIMENTATION RATE 15 mm/hr (0-20)
[2019-06-14] MEDS ORDERED: SIMV40TA20 PO (09:25)
[2019-06-14] MEDS ORDERED: PERCOCET PO (09:25)
[2019-06-14] MEDS ORDERED: SENN-52 PO (09:25)
[2019-06-14 10:00] VITALS: BP 130/75
--- NOTE | 2019-06-14 11:44 | IPNPDOC ---
Date Seen The patient was seen on 06/14/19. Progress Note Patient seen and examined. Doing well postop day #3 status post right common femoral endarterectomy and right femoral to below knee popliteal bypass with PTFE. He still has a little swelling in the leg today, but is frequently up walking around on it and we again discussed the need for elevation above the level of the heart for at least an hour after every time he ambulates. I like him to keep his legs elevated at night if possible 2. The patient and his are agreeable. His pain is well controlled, he took a shower yesterday without issue, he is ambulating without issue, urinating without issue, and is eating well. His incisions are clean dry and intact with minimal purplish discoloration intermittently along the edges, likely a bit of subcutaneous bruising, but no significant drainage is noted. He does have a little bit of swelling in the right groin, and this could possibly indicate a seroma, but there is no swelling over the graft, no extensive bruising to suggest a hematoma or bleeding, and I believe this will start to improve and resolve over the next few weeks. His inc isions were clean and dry and sterile dressings were applied. I instructed his on how to do his dressing changes. He still has 2 small blisters just proximal to the lower incision from removal of his initial postop dressing, but they are intact and small and do not have any surrounding erythema or induration to suggest cellulitis. Overall, I think the patient just needs a lot more time with his leg elevated to help diminish swelling. Yesterday, he had a low-grade temperature of 100.6 and 101, but his room was extremely hot and after they cooled down his room and he was started using an incentive spirometer, he was afebrile the rest of the day and had no fevers overnight or today. It may have been a combination of postop atelectasis and extremely warm temperature in the room. He does not show signs of infection at this point, and I do not think antibiotics are indicated. He does have a slight elevation of his white blood cell count 9, but this may still just be reactive from an artificial graft. I think he is ready for discharge and we like to see him back this week to check his incisions and make sure he is doing okay. He will need to be out of work for at least another week. He will continue aspirin and eliquis, and we appreciate our hospitalist adding statin medication for best medical management of PVD. Discharge home today with follow-up in a week. VS, I&O, 24H, [facility] Vital Signs/I&O Vital Signs Date Time Temp Pulse Resp B/P (MAP) Pulse Ox O2 Delivery O2 Flow Rate FiO2 06/14/19 10:00 97.5 70 18 130/75 (93) 98 Room Air 06/11/19 14:30 2 I&O- Last 24 Hours up to 6 AM 06/14/19 06:00 Intake Total 1320 ml Output Total 1400 ml Balance -80 ml Laboratory Data 24H LABS Laboratory Tests 2 06/14/19 05:17: Immature Granulocyte % (Auto) 0.5, Neutrophils (%) (Auto) 58.9, Lymphocytes (%) (Auto) 20.6L, Monocytes (%) (Auto) 12.2H, Eosinophils (%) (Auto) 6.8H, Basophils (%) (Auto) 1.0, Neutrophils # (Auto) 5.5, Lymphocytes # (Auto) 1.9, Monocytes # (Auto) 1.1H, Eosinophils # (Auto) 0.6H, Basophils # (Auto) 0.1, Nucleated Red Blood Cells % (auto) 0.0, Erythrocyte Sedimentation Rate 15, Anion Gap 6L, Glomerular Filtration Rate > 60.0, Calcium Level 8.8, Magnesium Level 2.2, C- Reactive Protein, Quantitative 6.46H 06/14/19 08:19: Methicillin-Resist S.aureus DNA PCR NOT DETECTED 06/14/19 09:57: Urine Color YELLOW, Urine Appearance CLEAR, Urine pH 7.0, Urine Specific [place] 1.012, Urine Protein NEGATIVE, Urine Glucose (UA) NEGATIVE, Urine Ketones TRACEH , Urine Blood NEGATIVE, Urine Nitrite NEGATIVE, Urine Bilirubin NEGATIVE, Urine Urobilinogen 0.2, Urine Leukocyte Esterase NEGATIVE, Urine WBC (Auto) 0, Urine RBC (Auto) 1, Urine Hyaline Casts (Auto) 0, Urine Bacteria (Auto) NEGATIVE, Urine Squamous Epithelial Cells 0, Urine Amorphous Sediment SMALLH, Urine Mucus (Auto) SMALL, Urine Sperm (Auto) CBC/BMP Laboratory Tests 06/14/19 05:17 Microbiology Microbiology 06/14/19 Blood Culture, Received Pending 12/15/19 Blood Culture, Received Pending MARIANNE THORNE MD Jun 14, 2019 11:44
--- NOTE | 2019-06-15 10:34 | IPN ---
DATE: 06/12/2019 Patient has no pain. Says that he was up all night waiting for the pain to come, but it never did. He was very anxious, and that was the only reason why he did not sleep well. He is afebrile. No complaints of pain. He is ambulating well with walker. No other issues per nursing overnight. Temperature 97.4, pulse 66, respiratory rate 18, blood pressure 147/77, 94% on room air. GENERAL: Patient is awake, alert, oriented times three. Answering questions appropriately. LUNGS: Clear to auscultation. No wheezing, rales, or rhonchi. ABDOMEN: Soft, nontender, nondistended. Positive bowel sounds. EXTREMITIES: Patient has significant hematoma and ecchymotic area in the right lower extremity, right groin and thigh. Clean dressing. Dorsalis pedis, posterior tibialis noted on the left and right with Doppler. No pitting edema. 06/11/2019 lab data has been reviewed, all of which are normal. ASSESSMENT AND PLAN: This is a 58-year-old male with peripheral vascular disease who was admitted from 04/29/2019 to 05/04/2019 with critical left limb ischemia, status post tissue plasminogen activator (tPA), thrombolysis from the bypass to popliteal artery, and angioplasty right common femoral and balloon times two. Patient is admitted this time after right femoral endarterectomy and profundoplasty with Acuseal patch angioplasty right femoral to below the knee popliteal bypass with polytetrafluoroethylene (PTFE) graft. Current issues are as follows: 1. Peripheral arterial disease with atherosclerosis right lower extremity, status post right femoral endarterectomy, profundoplasty, Acuseal patch angioplasty. Managed by vascular surgeon, Dr. Kasper. Patient has been resumed back on his home dose of Eliquis 5 mg twice a day. He is postoperative day #1. Physical therapy (PT) has been evaluated. Ocampo has been discontinued. Tobacco cessation counseling has been provided. High protein diet to help with wound healing. 2. History of paroxysmal atrial fibrillation. Currently on Eliquis, in sinus rhythm, and rate controlled on metoprolol. 3. Hypertension, stable, with holding parameters to prevent low blood pressure. 4. Gout. On allopurinol. 5. Tobacco cessation counseling has been provided for his tobacco abuse. 6. Alcohol abuse. No signs of alcohol withdrawal. DISPOSITION: Defer to vascular surgery for postoperative management and clearance for discharge.
--- NOTE | 2019-06-15 19:31 | DSES ---
DATE OF ADMISSION: 06/11/2019 DATE OF DISCHARGE: 06/14/2019 CONSULTANTS: Dr. Kasper, vascular surgery. PROCEDURES: 06/11/2019 right common femoral endarterectomy, major patch angioplasty, right femoral to [id number] popliteal artery bypass with [place] graft. DISCHARGE DIAGNOSES: 1. Peripheral arterial disease. 2. Active smoking. Tobacco cessation has been provided. 3. Alcohol abuse. 4. Paroxysmal atrial fibrillation. 5. Hypertension. 6. Gout. DISCHARGE MEDICATIONS: - Percocet one tablet every four hours as needed for severe pain - Senokot-S two tablets twice a day - simvastatin 40 at bedtime - allopurinol 300 daily - alprazolam 1 mg daily - Norvasc 5 daily - Eliquis 5 twice a day - aspirin 81 daily - metoprolol 50 daily - sertraline 50 daily HOSPITAL COURSE: This is a 58-year-old male who underwent a right common femoral endarterectomy with patch angioplasty, right femoral to [id number] popliteal artery bypass with [place]-Myn[place] graft on 06/11/2019, was admitted for observation to monitor for hematoma. The patient developed a fever of 101 but says that it was because of the ambient temperature in the room of about 85% and he had two blankets on. Workup included complete blood count (CBC) which was negative with a normal white count and negative blood cultures. Chest x-ray showed no acute infiltrate. The patient was given incentive spirometry for possible atelectasis. The patient did not develop any hematoma. Hemoglobin and hematocrit remained stable. He ambulated well and was cleared by vascular surgery for hospital discharge. The patient is to followup with Dr. Kasper within one week to monitor the patient's incision. PHYSICAL EXAMINATION ON DISCHARGE: Temperature 97.5, pulse 70, respiratory rate 18, blood pressure 130/75, 98% on room air. GENERAL: The patient is awake, alert and oriented times three, answering questions appropriately. LUNGS: Clear to auscultation. No wheezing, rales, or rhonchi. HEART: S1, S2, sinus rhythm. ABDOMEN: Soft, nontender, nondistended. Positive bowel sounds. EXTREMITIES: No clubbing, cyanosis, or pitting edema. The patient has a clean incisional site on the right medial leg. He does have ecchymosis in the right upper thigh in the medial aspect. He has a 0.5 cm bullous lesion which is thought to be a blister from the tape. LABORATORY DATA White count 9.1, hemoglobin 13, hematocrit 40, platelet count 154. Sodium 139, potassium 3.9, chloride 105, bicarbonate 28, BUN 10, creatinine 0.8, glucose of 105, CRP 6.46. Blood cultures pending. Chest x-ray: No acute infiltrate. TIME SPENT ON DISCHARGE: 30 minutes.
== END 2019-06-14 11:30 | disposition home or self-care (01) | DRG 181 ==
LOC: M OR 06:02 → M MSPAV 15:05
PROVIDERS: ADMIT Surgery Vascular Surgery; ATTEND General Practice
PROC: 041K0JL Bypass Right Femoral Artery to Popliteal Artery with Synthetic Substitute, Open Approach (ICD-10-PCS; 2019-06-11)
PROC: 04CK0ZZ Extirpation of Matter from Right Femoral Artery, Open Approach (ICD-10-PCS; principal; 2019-06-11 07:30)
DX: I70.211 Atherosclerosis of native arteries of extremities with intermittent claudication, right leg (principal); I10 Essential (primary) hypertension; F10.10 Alcohol abuse, uncomplicated; I48.0 Paroxysmal atrial fibrillation; M10.9 Gout, unspecified; Z79.899 Other long term (current) drug therapy; F41.9 Anxiety disorder, unspecified; F32.9 Major depressive disorder, single episode, unspecified; F17.200 Nicotine dependence, unspecified, uncomplicated

== ENCOUNTER → 2019-07-17 | Outpatient (CLI) | payer BC ==
[~2019-07-17] MED LIST changes: -LR 1,000 ML IV ONE; +SENN-52 PO; +SIMV40TA20 PO; -ceFAZolin SOD 2 GM in IV 1 EA IV ONE
--- NOTE | 2019-07-17 17:17 | REP ---
Bilateral lower extremity arterial Doppler ultrasound: History: Surgical aftercare following surgery on the circulatory system. Presence of vascular implants in grafts. History of trauma lysis right lower extremity femoral endarterectomy. Fem-pop bypass. Findings: Ankle brachial indices are measured at 0.9 on the left and 1.0 on the right. The right femoral-popliteal bypass graft is patent with triphasic flow without significant stenosis. Triphasic flow is seen distal to the bypass graft to the ankle on the right. The [place] superficial femoral artery is occluded on the right. The [place] superficial femoral artery and popliteal artery are occluded on the left as well. A patent left sided fem-pop bypass graft is seen with biphasic flow. No significant stenosis seen. Right lower extremity arterial Doppler velocity chart: CF A 137 cm/S Profunda 64 Proximal SFA occluded Mid SFA occluded Distal SFA reversed 31 cm/S Popliteal reverse 51 Proximal AT A 43 Tibioperoneal trunk 120 Proximal DEPARTMENT HEAD COLLEGE OR UNIVERSITY 58 Distal DEPARTMENT HEAD COLLEGE OR UNIVERSITY 53 Distal AT A 32 Right fem-pop bypass graft: CF A anastomosis 140 cm/S Proximal thigh 69 Mid thigh 65 Distal 553 Knee level 47 Proximal calf 61 Tibioperoneal anastomoses 59 Left lower extremity arterial Doppler velocity chart: CF A 97 cm/S Profunda 145 Proximal SFA occluded Mid SFA occluded Distal SFA occluded Popliteal occluded Proximal AT A 40 Tibioperoneal trunk reverse 39 Proximal DEPARTMENT HEAD COLLEGE OR UNIVERSITY 40 Distal DEPARTMENT HEAD COLLEGE OR UNIVERSITY 30 Distal AT A 48 Left fem-pop bypass graft: Common femoral artery and anastomosis 48 cm/S Proximal thigh 29 Mid thigh 37 Distal 533 At the knee level 31 Proximal calf 35 Tibioperoneal anastomosis 35 Electronically Signed by Gustavo Yepez MD 07/17/2019 05:08 P
== END ==
LOC: M RAD 09:55
PROVIDERS: ATTEND Physician Assistant
DX: Z48.812 Encounter for surgical aftercare following surgery on the circulatory system (principal); Z95.828 Presence of other vascular implants and grafts; I70.203 Unspecified atherosclerosis of native arteries of extremities, bilateral legs

== ENCOUNTER → 2019-10-22 | Outpatient (CLI) | payer BC ==
--- NOTE | 2019-10-22 18:54 | REP ---
Clinical: Symptoms related to atherosclerotic disease and intermittent claudication. History of bilateral femoropopliteal grafts. Technique: Real time cronin scale and color Doppler evaluation of the bilateral lower extremity arterial vasculature using linear high frequency transducer. Findings: Left lower extremity demonstrates moderate atherosclerotic changes along with occlusion of the [place] proximal through distal superficial femoral artery (SFA). Left femoral - popliteal bypass graft is patent. Wave patterns through the left lower extremity are primarily biphasic although distal posterior tibial artery demonstrates monophasic wave pattern which is a new finding as compared to prior examination. Right lower extremity demonstrates moderate atherosclerotic changes along with occlusion of the [place] proximal/mid superficial femoral artery along with reversal of flow noted in the distal SFA. Right femoral - popliteal bypass graft is patent. An 83.6 x 0.9 x 1.1 cm collection possibly representing hematoma or seroma at the popliteal fossa is again noted. Wave patterns through the right lower extremity are primarily triphasic although distal posterior tibial artery demonstrates monophasic wave pattern which is a new finding as compared to prior examination. Peak systolic velocities (cm/sec) RIGHT LEFT JALEEL 1.1 1.1 Common femoral artery 131 89 Profunda femoris -- 137 SFA (proximal) occluded occluded SFA (mid) occluded occluded SFA (distal) reversed occluded Popliteal artery 51 28 VANDANA (prox.) 65 68 Tibioperoneal trunk 74 37 SOFTWARE WRITER (prox.) 45 45 SOFTWARE WRITER (distal) 49 19 VANDANA (distal) 14 42 bypass graft (prox /mid/dist): 66/59/68 40/41/38 Impression: 1. Bilateral femoral - popliteal bypass grafts appear patent. 2. Collection at the right popliteal fossa may represent residual postsurgical seroma/hematoma. 3. Findings as detailed above. Electronically Signed by Rich Kirby MD 10/22/2019 06:45 P
== END ==
LOC: M RAD 09:28
PROVIDERS: ATTEND Surgery Vascular Surgery
DX: I70.213 Atherosclerosis of native arteries of extremities with intermittent claudication, bilateral legs (principal); Z48.812 Encounter for surgical aftercare following surgery on the circulatory system; Z95.820 Peripheral vascular angioplasty status with implants and grafts

== ENCOUNTER → 2019-10-29 | Outpatient (CLI) | payer BC ==
--- NOTE | 2019-10-29 11:47 | REP ---
REASON FOR EXAM: Pain and swelling. DEEP VENOUS ULTRASONOGRAPHY RIGHT THIGH, RULE OUT DVT: TECHNIQUE: Multiple ultrasonographic images of the deep venous structures of the thigh were obtained from the common femoral vein to the popliteal vein along with Doppler interrogation and color flow Doppler images. FINDINGS: There is no abnormal echogenic material seen within any of the visualized deep venous structures that would suggest acute thrombosis. Coaptation is unremarkable throughout. Doppler interrogation shows an expected response to respiratory variability and augmentation. The color flow images show what appears to be a normal vascular pattern throughout. IMPRESSION: There is no ultrasonographic evidence of deep venous thrombosis involving any of the visualized deep venous structures of the right thigh, as described above. Electronically Signed by Hosea Heath DO 10/29/2019 11:53 A
== END ==
LOC: M RAD 10:20
PROVIDERS: ATTEND Physician Assistant
DX: R22.41 Localized swelling, mass and lump, right lower limb (principal); M79.604 Pain in right leg

== ENCOUNTER → 2020-04-11 | Outpatient (CLI) | payer BC ==
[~2020-04-11] MED LIST changes: +AMLO1TAB24 PO; -AMLO5TAB6 PO
--- NOTE | 2020-04-14 09:37 | REP ---
BILATERAL LOWER EXTREMITY ARTERIAL DOPPLER ULTRASOUND HISTORY: Atherosclerosis of the [place] arteries. Intermittent claudication bilateral legs. COMPARISON: 10/22/2019. FINDINGS: Ankle brachial indices are essentially normal measured at 1.2 on the right and 0.9 on the left. The [place] superficial femoral arteries are bilaterally occluded and there are patent bilateral fem-pop bypass grafts. Biphasic waveforms are noted distal to the bypass grafts in both lower extremities. No additional high grade stenosis or occlusion is seen. Findings are similar to the prior study. RIGHT LOWER EXTREMITY ARTERIAL DOPPLER VELOCITY CHART: RIGHT PSV Right fem-pop graft proximal anastomosis 117 cm/s Proximal thigh 53 cm/s Mid graft 54 cm/s Distal graft 53 cm/s Mid knee level 52 cm/s Popliteal anastomosis 57 cm/s Right ENVIRONMENTAL HEALTH AND SAFETY MANAGER 98 cm/s Profunda 82 cm/s Proximal SFA Occluded Mid SFA Occluded Distal SFA Occluded Popliteal 55 cm/s Proximal VANDANA 50 cm/s Tibioperoneal trunk 25 cm/s Proximal NEEDLE PUNCH MACHINE OPERATOR 64 cm/s Distal NEEDLE PUNCH MACHINE OPERATOR 53 cm/s Distal VANDANA 55 cm/s LEFT LOWER EXTREMITY ARTERIAL DOPPLER VELOCITY CHART: LEFT PSV Left fem-pop bypass graft proximal anastomosis 53 cm/s Proximal thigh 46 cm/s Mid thigh 48 cm/s Distal thigh 39 cm/s Mid knee level 44 cm/s Popliteal anastomosis 39 cm/s Left ENVIRONMENTAL HEALTH AND SAFETY MANAGER 115 cm/s Profunda 92 cm/s Proximal SFA Occluded Mid SFA Occluded Distal SFA Occluded Popliteal 46 cm/s Proximal VANDANA 54 cm/s Tibioperoneal trunk 35 cm/s Proximal NEEDLE PUNCH MACHINE OPERATOR 26 cm/s Distal NEEDLE PUNCH MACHINE OPERATOR 15 cm/s Distal VANDANA 50 cm/s MTDD
== END ==
LOC: M RAD 07:14
PROVIDERS: ATTEND Surgery Vascular Surgery
DX: I70.213 Atherosclerosis of native arteries of extremities with intermittent claudication, bilateral legs (principal)

== ENCOUNTER → 2020-10-20 | Outpatient (CLI) | payer BC, OTHER ==
[~2020-10-20] MED LIST changes: +ASPI-569 PO; -ASPI81TAEC PO
--- NOTE | 2020-10-20 09:14 | REP ---
INDICATION: CLAUDICATION. COMPARISON: Comparison sonography April 11, 2020.. TECHNIQUE: Bilateral lower extremity arterial Doppler ultrasound. FINDINGS: Ankle brachial indices remain normal. 1.0 on the right and 0.9 on the left. Patent bypass grafts are noted bilaterally, fem pop distribution. Bilateral SFA a [place] artery occlusions. Biphasic arterial Doppler waveforms are noted distal to the grafts bilaterally in the lower extremities. There is a distal occlusion of the left posterior tibial artery with revascularize flow, short segment. No other high-grade stenosis or occlusion is seen. Right lower extremity arterial Doppler velocity chart: Right EMBEDDED SYSTEMS SOFTWARE DEVELOPER PSV 110 cm/S Profundal 72 Proximal SFA occluded Mid SFA occluded Distal SFA occluded Popliteal reversed flow Proximal VANDANA 76 Tibial-peroneal trunk 63 Proximal PARISH NURSE 59 Distal PARISH NURSE 55 Distal VANDANA 57 Right lower extremity fem-pop bypass graft velocity chart: Right EMBEDDED SYSTEMS SOFTWARE DEVELOPER anastomosis PSV 137 cm/S Proximal thigh 72 Mid thigh 60 Knee 74 Popliteal anastomosis 74 Left lower extremity arterial Doppler velocity chart: Left EMBEDDED SYSTEMS SOFTWARE DEVELOPER PSV 95 cm/S Profundal 124 Proximal SFA occluded Mid SFA occluded Distal SFA occluded Popliteal occluded/reversed Proximal VANDANA 80 Tibial-peroneal trunk 35 Proximal PARISH NURSE 40 Distal PARISH NURSE revascularized 15 Distal VANDANA 67 Left lower extremity fem-pop bypass graft velocity chart: Left EMBEDDED SYSTEMS SOFTWARE DEVELOPER anastomosis 59 cm/S Proximal thigh 36 Mid thigh 35 Knee 36 Popliteal artery melinda Amaro 54/71 IMPRESSION: Bilateral [place] SFA occlusions. Patent bypass grafts bilaterally fem-pop. Short segment occlusion observed in the distal posterior tibial artery on the left. <Electronically signed by Rafiq Yepez > 10/20/20 9113
== END ==
LOC: M RAD 07:21
PROVIDERS: ATTEND Physician Assistant
DX: I70.213 Atherosclerosis of native arteries of extremities with intermittent claudication, bilateral legs (principal)

== ENCOUNTER → 2021-09-30 | Outpatient (CLI) | payer OTHER ==
[2021-09-30 09:18] LABS: HEMATOCRIT 45.6 % (42.0-52.0); HEMOGLOBIN 15.4 g/dl (13.5-17.5); MEAN CORPUSCULAR HEMOGLOBIN 31.4 pg (27.0-33.0); MEAN CORPUSCULAR HGB CONC 33.8 g/dl (32.0-36.5); MEAN CORPUSCULAR VOLUME 92.9 fl (80.0-96.0); PLATELET COUNT, AUTOMATED 159 10^3/uL (150-450); RED BLOOD COUNT 4.91 10^6/uL (4.30-6.10); WHITE BLOOD COUNT 7.2 10^3/uL (4.0-10.0)
[2021-09-30 09:55] LABS: ALBUMIN 3.4 GM/DL (3.2-5.2); ALT/SGPT 45 U/L (12-78); BILIRUBIN,TOTAL 0.7 MG/DL (0.2-1.0); BLOOD UREA NITROGEN 11 MG/DL (7-18); CARBON DIOXIDE LEVEL 30 MEQ/L (21-32); CHLORIDE LEVEL 103 MEQ/L (98-107); CHOLESTEROL LEVEL 158 MG/DL (<200); CHOLESTEROL RISK RATIO 2.468 (<5); CREATININE FOR GFR 0.97 MG/DL (0.70-1.30); GLOMERULAR FILTRATION RATE > 60.0 (>49); GLUCOSE, FASTING 105 MG/DL (70-100); HDL CHOLESTEROL 64 MG/DL (>40); LDL CHOLESTEROL 83 MG/DL (<100); NON-HDL-C 94 MG/DL; POTASSIUM SERUM 4.6 MEQ/L (3.5-5.1); PROSTATIC SPECIFIC AG MONITOR 0.47 NG/ML (< 4.00); SODIUM LEVEL 137 MEQ/L (136-145); TOTAL PROTEIN 7.2 GM/DL (6.4-8.2); TRIGLYCERIDES LEVEL 53 MG/DL (<150)
[2021-09-30 13:00] LABS: HEMOGLOBIN A1c 5.5 %
[2021-10-02 10:41] LABS: TESTOSTERONE 639 NG/DL (241-827)
== END ==
LOC: M RAD 08:10
PROVIDERS: ATTEND Family Medicine
DX: I10 Essential (primary) hypertension (principal); R53.83 Other fatigue; J44.9 Chronic obstructive pulmonary disease, unspecified; R00.2 Palpitations; I45.4 Nonspecific intraventricular block

== ENCOUNTER → 2022-02-14 | Outpatient (CLI) | payer OTHER | LOC: M WUC 10:25 | PROVIDERS: ATTEND Physician Assistant | DX: S23.41XA Sprain of ribs, initial encounter (principal) ==

== ENCOUNTER → 2024-08-06 | Outpatient (CLI) | payer OTHER ==
[~2024-08-06] MED LIST changes: +DIPH1TAB80 PO; -DIPH2.5T14 PO
[2024-08-06 10:50] LABS: HEMATOCRIT 42.8 % (42.0-52.0); MEAN CORPUSCULAR HEMOGLOBIN 31.3 pg (27.0-33.0); MEAN CORPUSCULAR HGB CONC 32.7 g/dl (32.0-36.5); MEAN CORPUSCULAR VOLUME 95.7 fl (80.0-96.0); PLATELET COUNT, AUTOMATED 121 10^3/uL (150-450); RED BLOOD COUNT 4.47 10^6/uL (4.30-6.10); WHITE BLOOD COUNT 5.6 10^3/uL (4.0-10.0)
[2024-08-06 11:00] LABS: HEMOGLOBIN A1c 5.2 % (4.0-6.0)
[2024-08-06 11:19] LABS: PROSTATIC SPECIFIC AG MONITOR 0.34 NG/ML (< 4.00)
[2024-08-06 11:24] LABS: THYROID STIMULATING HORMONE 3.465 uIU/ML (0.55-4.78)
[2024-08-06 11:25] LABS: ALBUMIN 3.2 G/DL (3.2-5.2); ALKALINE PHOSPHATASE 85 U/L (40-129); ALT/SGPT 30 U/L (7.0-40); AST/SGOT 31 U/L (<34); BILIRUBIN,TOTAL 0.4 MG/DL (0.3-1.2); BLOOD UREA NITROGEN 18 MG/DL (9-23); CALCIUM LEVEL 8.8 MG/DL (8.3-10.6); CARBON DIOXIDE LEVEL 26 MMOL/L (20-31); CHLORIDE LEVEL 107 MMOL/L (98-107); CHOLESTEROL LEVEL 215 MG/DL (<200); CHOLESTEROL RISK RATIO 4.11 (<5); CREATININE FOR GFR 0.78 MG/DL (0.70-1.30); GLOMERULAR FILTRATION RATE > 60.0 (>49); GLUCOSE, FASTING 125 MG/DL (74-106); HDL CHOLESTEROL 52.3 MG/DL (>40); LDL CHOLESTEROL 131.7 MG/DL (<100); NON-HDL-C 162.7 MG/DL; POTASSIUM SERUM 4.1 MMOL/L (3.5-5.1); SODIUM LEVEL 139 MMOL/L (136-145); TESTOSTERONE 1015 NG/DL (241-827); TOTAL PROTEIN 7.1 G/DL (5.7-8.2); TRIGLYCERIDES LEVEL 155 MG/DL (<150)
== END ==
LOC: M WUC 08:19
PROVIDERS: ATTEND Family Medicine
DX: I10 Essential (primary) hypertension (principal); J44.9 Chronic obstructive pulmonary disease, unspecified; R53.83 Other fatigue

== ENCOUNTER → 2024-08-12 | Outpatient (CLI) | payer OTHER | LOC: M EKG 08:43 | PROVIDERS: ATTEND Family Medicine | DX: I10 Essential (primary) hypertension (principal); J44.9 Chronic obstructive pulmonary disease, unspecified; R53.83 Other fatigue; R94.31 Abnormal electrocardiogram [ECG] [EKG] ==